=== PATIENT | female | born 1955 | race Caucasian/White ===

== ENCOUNTER → 2018-07-15 | Outpatient (CLI) | payer BC ==
[2018-07-15 09:01] LABS: HCT 45.1 % (34.0-46.0); HGB 14.9 gm/dL (11.4-16.0); MCH 30.4 pg (25.0-35.0); MCHC 33.1 g/dL (31.0-37.0); MCV 91.9 fL (80.0-100.0); Mean Platelet Volume 6.8; Platelet Count 235 k/uL (150-450); RBC 4.91 m/uL (3.80-5.40); RDW 12.9 % (11.5-15.5); WBC 6.4 k/uL (3.8-10.6)
[2018-07-15 09:05] LABS: Appearance,Urine Clear (Clear); Bilirubin,Urine Negative (Negative); Blood,Urine Negative (Negative); Color,Urine Yellow; Glucose,Urine (UA) Negative (Negative); Ketones,Urine Negative (Negative); Leukocyte Esterase,Urine Negative (Negative); Nitrite,Urine Negative (Negative); Protein,Urine Negative (Negative); Specific Gravity,Urine 1.017 (1.001-1.035); Urobilinogen,Urine <2.0 mg/dL (<2.0)
[2018-07-15 09:06] LABS: INR 1.1 (<1.2); Prothrombin Time 10.5 sec (9.0-12.0)
[2018-07-15 09:18] LABS: ALT 18 U/L (9-52); AST 25 U/L (14-36); Albumin 3.9 g/dL (3.5-5.0); Alkaline Phosphatase 82 U/L (38-126); Anion Gap 6 mmol/L; Blood Urea Nitrogen 14 mg/dL (7-17); Calcium 9.8 mg/dL (8.4-10.2); Carbon Dioxide 27 mmol/L (22-30); Chloride 109 mmol/L (98-107); Glucose 99 mg/dL (74-99); Potassium 4.7 mmol/L (3.5-5.1); Sodium 142 mmol/L (137-145); Total Bilirubin 0.7 mg/dL (0.2-1.3); Total Protein 6.8 g/dL (6.3-8.2)
== END ==
LOC: LABPAT 08:09
PROVIDERS: ATTEND Orthopaedic Surgery Sports Medicine
DX: Z01.818 Encounter for other preprocedural examination (principal); Z01.812 Encounter for preprocedural laboratory examination
CPT/HCPCS: 36415; 80053; 81003; 85027; 85610; 85730; 87070; 93005

== ENCOUNTER 2018-07-24 11:31 | Inpatient (IN) | payer BC ==
[2018-07-14 15:06] VITALS: BMI 32.3
[~2018-07-24 11:31] MED LIST: ACETAMINOPHEN TAB 500 MG TAB PO ONE; DEXAMETHASONE SOD PHOSPHATE 10 MG/ML 1 ML VIAL IV ONE; HYDROmorphone 1 MG/ML 1 ML SYRINGE IVP PRN; LACTATED RINGERS 1,000 ML IV SCH; LIDOCAINE 1% 20 ML VIAL (10MG/ML) FOR IV START INTRADERMA PRN; MELOXICAM 7.5 MG TAB PO ONE; MIDAZOLAM 2 MG/2 ML VIAL IV PRN; ONDANSETRON 4 MG/2 ML VIAL IVP ONE; ROPIVACAINE 246.25 MG, EPINEPHrine 0.5 MG, KETOROLAC 30 MG, cloNIDine HCL/PF 80 MCG, WA... MISCELLANE ONE; SCOPOLAMINE 1.5MG/72HR PATCH TRANSDERM ONE; TRANEXAMIC ACID 1,000 MG in SODIUM CHLORIDE 0.9% 50 ML IVPB ONE; ceFAZolin IN SWFI 2 GM/20 ML SYRINGE IVP ONE
[2018-07-24] MEDS ORDERED: fentaNYL (PF) 50 MCG/ML 2 ML AMP ONE (14:11)
[2018-07-24] MEDS ORDERED: TRANEXAMIC ACID 1,000 MG/10 ML VIAL ONE (14:11)
[2018-07-24] MEDS ORDERED: MIDAZOLAM 2 MG/2 ML VIAL ONE (14:11)
[2018-07-24] MEDS ORDERED: SODIUM CHLORIDE 0.9% 100 ML BAG ONE (14:11)
[2018-07-24] MEDS ORDERED: diphenhydrAMINE 50 MG/ML 1 ML VIAL ONE (14:11)
[2018-07-24] MEDS ORDERED: PROPOFOL 10 MG/ML 20 ML VIAL IV ONE (14:11)
[2018-07-24] MEDS ORDERED: HYDROcodone/APAP 5-325MG 1 EACH TAB PO PRN ×2 (14:13)
[2018-07-24] MEDS ORDERED: TEMAZEPAM 15 MG CAP PO PRN (14:13)
[2018-07-24] MEDS ORDERED: HYDROmorphone 1 MG/ML 1 ML SYRINGE IVP PRN ×3 (14:13)
[2018-07-24] MEDS ORDERED: HYDROcodone/APAP 10-325MG 1 EACH TAB PO PRN (14:13)
[2018-07-24] MEDS ORDERED: traMADol 50 MG TAB PO PRN (14:13)
[2018-07-24] MEDS ORDERED: NALOXONE 0.4 MG/ML 1 ML VIAL IV PRN ×2 (14:13→15:05)
[2018-07-24] MEDS ORDERED: BISACODYL 10 MG SUPP RECTAL PRN (14:13)
[2018-07-24] MEDS ORDERED: DIAZEPAM 5 MG TAB PO PRN (14:13)
[2018-07-24] MEDS ORDERED: MAGNESIUM HYDROXIDE 2,400 MG/10 ML CUP PO PRN (14:13)
[2018-07-24] MEDS ORDERED: NA PHOS,M-B/NA PHOS,DI-BA 133 ML ENEMA RECTAL PRN (14:13)
[2018-07-24] MEDS ORDERED: hydrOXYzine PAMOATE 25 MG CAP PO PRN (14:13)
[2018-07-24] MEDS ORDERED: ONDANSETRON 4 MG/2 ML VIAL IVP PRN (14:13)
[2018-07-24] MEDS ORDERED: HYDROcodone/APAP 7.5-325MG 1 EACH TAB PO PRN (14:13)
[2018-07-24] MEDS ORDERED: LACTATED RINGERS 1,000 ML IV SCH (14:15)
[2018-07-24] MEDS ORDERED: CLINDAMYCIN 1,800 MG in SODIUM CHLORIDE 0.9% IRRIGATIO 3,000 ML IRRIGATION ONE (14:18)
[2018-07-24] MEDS ORDERED: LACTATED RINGERS 1,000 ML IV ONE (14:33)
[2018-07-24] MEDS ORDERED: PROMETHAZINE INJ 6.25 MG in SODIUM CHLORIDE 0.9% 50 ML IVPB PRN (15:05)
[2018-07-24] MEDS ORDERED: MORPHINE SULFATE 2 MG/ML SYRINGE IVP PRN (15:05)
[2018-07-24] MEDS ORDERED: NALBUPHINE 10 MG/ML VIAL (10ML MDV) IV PRN (15:05)
[2018-07-24] MEDS ORDERED: METOCLOPRAMIDE 5 MG/ML 2 ML VIAL IVP PRN (15:05)
--- NOTE | 2018-07-24 16:33 | XR ---
Limited right knee HISTORY: Status post right knee arthroplasty 2 views of the right knee Patient is status post right knee arthroplasty. There is anatomic alignment. Lucency present in the s oft tissues is compatible with postop state. Ossific densities posterior to the distal femur and at t he level of the posterior aspect of the femoral prosthesis are indeterminate, difficult to exclude lo ose bodies. IMPRESSION: Difficult to exclude loose bodies. Postop alignment is satisfactory. A Yellow level critical message alert has been initiated for Mekhi Sultana via the [employer] on 07/24/2018 4:31 PM. This message alert has been sent to Mekhi Sultana via e preferences provided by the clinician for the receipt of Radiology Critical Findings. Message ID [id number].
--- NOTE | 2018-07-24 18:01 | OP ---
OPERATIVE REPORT DATE OF PROCEDURE: 07/24/2018 PREOPERATIVE DIAGNOSIS: Right knee osteoarthrosis. POSTOPERATIVE DIAGNOSIS: Right knee osteoarthrosis. OPERATION: Right total knee arthroplasty. SURGEON: Kemar Davison MD TRAINING AND DEVELOPMENT SPECIALIST: Mekhi Sultana PA-C ANESTHESIA: Spinal with sedation. ESTIMATED BLOOD LOSS: 100 mL. TOURNIQUET TIME: 45 minutes at 250 mmHg. COMPLICATIONS: None apparent. DRAINS: None. DISPOSITION: Post-Anesthesia Care Unit. INDICATIONS: Kristy is a very pleasant 63-year-old female with a long-standing history of right knee pain. History and physical examination are consistent with advanced right knee osteoarthrosis. She has been through significant non-operative management up to this point. Further treatment options were discussed and she decided to go forward with right total knee arthroplasty. The risks of the procedure were discussed with her in detail. These risks include but are not limited to risk of infection, nerve damage, bleeding, pain and risk of deep vein thrombosis which could lead to fatal pulmonary embolism. There is also a risk of loosening of the implant which could require revision operation. The patient understands these risks. All of her questions were answered to her satisfaction. Appropriate informed consent was obtained. DESCRIPTION OF THE PROCEDURE: The patient was identified in the preoperative holding area. Surgical site was marked by both the patient and myself. She was given 2 grams of Ancef IV for prophylactic purposes. She was then transferred to the operative suite. She was placed supine on the operating room table. Spinal anesthetic was then administered and dosed per the anesthesia department without apparent complication. Examination under anesthesia was then performed. The patient was 2-3 degrees shy of full extension. She had 100 degrees of flexion. The medial collateral ligament, lateral collateral ligament and posterior cruciate ligaments were stable. Tourniquet was then placed high on the right upper thigh, well padded in preparation for surgery. The patient's right lower extremity was then prepped and draped in the usual sterile fashion. Standard surgical pause was then undertaken to ensure that we were operating on the correct site and that appropriate preoperative antibiotics had been given. All staff in the room were in agreement and we proceeded. The outlines of the patella were marked with a surgical pen. A planned 12 cm vertical incision centered over the patella was marked with a surgical pen. The leg was exsanguinated with an Esmarch dressing. The knee was then flexed and the tourniquet was inflated to 250 mmHg. The total tourniquet time for the procedure was 45 minutes. Incision was then made with a 10-blade scalpel. Dissection was carried down sharply to the overlying fascia. Great care was taken to minimize the skin flaps. The knee was then exposed using a standard medial parapatellar approach. A small cuff of quadriceps tendon was then left for suturing. She was in a bit of valgus preoperatively. Very minimal medial release was then made. This was done with just enough of a medial release for placement of the retractors. The medial meniscus was then excised as well. The lateral meniscus was also released anteriorly. The leg was then externally rotated. The patella was everted and the knee was flexed. The retractors were then placed to protect the collateral ligaments. I then proceeded to remove the infrapatellar fat pad. This was excised sharply tangentially with the fibers of the patellar tendon. I then proceeded to remove peripheral osteophytes. This was done with a rongeur. I then proceeded with the distal femoral resection. She did have near-full extension. The planned 9 mm resection was then done. The femoral canal was then entered in the midline of the femur approximately 10 mm anterior to the origin of the posterior cruciate ligament. The bobbi was then advanced down the center of the femur and placed intramedullary. Based on the preoperative radiographs, the angle between the anatomic and the mechanical axis of the femur was approximately 4-5 degrees. The valgus angle of the distal femoral cutting guide was then set at 4 degrees for the right knee. The distal femoral cutting guide was then advanced over the intramedullary bobbi. This was seated firmly against the femur. I then, as mentioned, planned take 9 mm off the distal femur. The cutting block was then secured onto the femur with pins. The jig was then removed and the distal femoral cut was made through the slot of the block. The pins were removed and the distal femoral cutting block was removed. The accuracy of the distal femoral cuts was checked with 2 flat bars. I then proceeded with femoral sizing. Posterior referencing sizing guide was held firmly against the resected distal surface of the femur. The posterior condyles were resting on the posterior plane of the guide. The sizing stylus was then placed on the anterior femur. The size was measured as a size 7. I then assessed for femoral rotation. The plan was for 3 degrees of external rotation. Three degrees of external rotation was placed onto the jig. These holes were then marked. I then confirmed the rotation by 3 separate methods. This was done using epicondylar axis as well as Whitesides line and posterior referencing. It was deemed that the external rotation was proper. I then went forward with placing the femoral cutting block. This was placed over the previously placed pin holes. The Thad wing was then placed on to the anterior slots to ensure that we would not notch the anterior femur with the anterior femoral cut. I then proceeded with the anterior femoral cut. This was flush with the anterior cortex of the femur. The posterior cuts were then made followed by the anterior chamfer cut, then the posterior chamfer cut. The cutting block was then removed. Throughout the resection, the collateral ligaments were protected with retractors. I then placed a trial size 7 femur. It fit very nice medial to lateral and fit flush with the distal end of the femur. The drill holes were then made. I then proceeded with the tibial cut. I planned for a cruciate-retaining knee. The guide was placed and set for varus, valgus and for slope. The height was set for an approximate 2 mm resection from the lateral tibial plateau, which was the lower side. I was happy with the alignment and amount of resection. The cutting block was then pinned to the proximal tibia. The alignment bobbi was removed and the proximal tibia was resected with a reciprocating saw. Again this was done with retractors protecting the collateral ligaments as well as the posterior cruciate ligament. I then proceeded to evaluate the flexion and extension gaps. A 10 mm block was placed. The flexion and extension gaps were equal. I then proceeded with resection of posterior osteophytes. She had very extensive posterior osteophytes. This was done using a curved osteotome. This resected the posterior osteophytes, and posterior capsule stripping was also done off the posterior aspect of the femur at this time. The osteophytes were then removed. I then proceeded with resection of the patella. The thickness of patella was measured using a caliper. The thickness was 22 mm. The thickness of the anticipated patellar dome was taken into account. The resection was then performed and confirmed to be equal in 4 quadrants using a caliper. Approximately 14 mm of bone remained after the resection. A 32 x 8.5 mm standard patellar trial was then placed. The holes were drilled and the trial was then placed. I then proceeded with sizing the tibial plate. A size E tibial plate fit very nicely. I then placed the trial femur, the tibial tray and the patellar button. A 10 mm trial tibial insert was also placed. The components fit very nicely. She had full extension and flexion. The extension and flexion gaps were equal and stable to both varus and valgus stress. The patella tracked appropriately. The tibial tray rotation was marked with a Bovie. This was externally rotated properly. I then proceed with tibial preparation. I first drilled the femoral holes and removed femoral component. The tibial tray was then set for proper external rotation as well as mediolateral placement onto the tibia. It was then pinned into place. I then proceeded with punching the keel. I then decided to proceed with cementing of all of our components. The knee was thoroughly irrigated with sterile saline solution via pulse lavage. The lateral geniculate artery was identified and cauterized. All blood was removed from the bone of the tibia, femur and patella via pulse lavage. I then proceed with cementing. Two packs of antibiotic bone cement were prepared on the back table by the surgical sales representative. I then proceeded with cementing the tibia first. The cement was impacted into the keel as well as deeply seated into the bone. A second coat of cement was then placed. The tibia was then impacted into place. Excess cement was removed with Mary's and jokers. I then proceeded with cementing the femoral component. The femoral component was also cemented using standard technique. Excess cement was removed. A 10 mm trial insert was then placed into the knee. It was brought into full extension with a constant axial load placed until the cement had hardened. The patellar component was then cemented. This was held firmly with a compressive device until the cement had dried. When the cement had dried, the knee was taken out of extension. All excess cement was removed from around the prosthesis. I then trialed the knee with a 10 mm insert. The flexion and extension gaps were appropriate. Polyethylene was then placed onto the tibial tray and locked into place. The knee was then reduced. The knee was again further irrigated with sterile saline solution with antibiotic added. The tourniquet was then deflated. The total tourniquet time for the procedure was 45 minutes at 250 mmHg. Final components were Minda Persona size 7 cruciate-retaining femoral component, a size E tibial tray, a 10 mm medial-congruent cruciate-retaining polyethylene insert, and a 32 x 8.5 mm patella. I then proceeded with closure. Again the knee was thoroughly irrigated. The quadriceps tendon and the medial retinaculum were reapproximated with #2 Ethibond suture. The extensor mechanism was then closed with a running #2 Quill suture. Subcutaneous tissues were closed with 2-0 Vicryl interrupted suture. The skin was closed with a running 3-0 Quill suture. Dermabond was applied to the incision. Sterile compressive dressing was then applied. All sponge and needle counts were deemed correct prior to closure. The patient tolerated the procedure without apparent complication. She was transferred to the recovery room in stable condition. MMODL / IJN: [id number] /
[2018-07-24] MEDS: ceFAZolin IN SWFI 2 GM/20 ML SYRINGE IVP SCH (20:16)
[2018-07-24] MEDS: ASPIRIN 325 MG TAB PO SCH (20:16)
[2018-07-24] MEDS: diphenhydrAMINE 50 MG/ML 1 ML VIAL IVP PRN (20:16)
[2018-07-24] MEDS ORDERED: SENNOSIDES-DOCUSATE SODIUM 1 EACH TAB PO SCH (21:00)
--- NOTE | 2018-07-24 21:36 | P.CON ---
Consult Note - . Consult date: 07/24/18 Assessment/Plan:: Patient of Dr. Gerard Rodrigues was consulted for medical management, postoperative. Patient is hypotensive/normotensive blood pressure 102/67 and 101/66, IV fluid changes 2.9 normal saline the same rate 75 mL an hour meanwhile discontinue the lactated Ringer. Kristy Leal 63 years old white female has 2 daughter and 1 son she came in electively for right total knee arthroplasty done by Dr. Kemar Davison today subsequently consult for medical management. Patient stated that she had arthritis in both knee but the right knee is worse and that is why she had the surgery. She denied any history of diabetes mellitus, hypertension, hypotension, medication for any of other reasons. ALLERGY to penicillin and amoxicillin. No previous history of surgical intervention. She is . Family history noncontributory. Review of system negative in the 14 point. Except the arthritis of the right knee. On exam: HEENT: Head was normocephalic and atraumatic,. Pupil equal reactive conjunctiva pink sclera was nonicteric. Normal hearing oropharynx natural teeth uvula midline, normal Neck supple no JVD no thyromegaly no lymphadenopathy trachea midline. Chest: Clear to auscultation and percussion Heart regular sinus rhythm. Abdomen is soft positive bowel sounds. Extremities: Right total knee arthroplasty, left knee advanced degenerative arthritis. No edema. Vital sign at the time of exam temperature 98.3 pulse 65 rate 16 and blood pressure 102/67. She is conscious alert oriented no dizziness or blurred vision. Assessment and plan: Blood pressure on the low side however is normal perfusing 102/67, plan change of the IV 2.9 normal saline 75 mL. Check lab in the morning if wasn't ordered by Dr. ray. Anticoagulation. The orthopedic surgeon.
[2018-07-25] MEDS: ceFAZolin IN SWFI 2 GM/20 ML SYRINGE IVP SCH (03:50)
[2018-07-25] MEDS: diphenhydrAMINE 50 MG/ML 1 ML VIAL IVP PRN (03:50)
[2018-07-25 05:22] VITALS: RESP 16
[2018-07-25] MEDS: SODIUM CHLORIDE 0.9% 1,000 ML IV SCH ×2 (05:50→09:26)
--- NOTE | 2018-07-25 06:59 | P.PN ---
Progress Note - Text Date: ime:[id number] Patient is status post total knee replacement by Dr. Davison. Patient seen this morning with VAS score of 0.no c/o of pruritus, no c/o nausea/vomiting, comfortable and doing well.
[2018-07-25 08:10] LABS: Basophils % (A) 0 %; Eosinophils # (A) 0.1 k/uL (0-0.7); Eosinophils % (A) 1 %; HCT 38.4 % (34.0-46.0); HGB 12.6 gm/dL (11.4-16.0); Lymphocytes # (A) 1.8 k/uL (1.0-4.8); Lymphocytes % (A) 13 %; MCH 30.4 pg (25.0-35.0); MCHC 32.9 g/dL (31.0-37.0); MCV 92.5 fL (80.0-100.0); Mean Platelet Volume 7.3; Monocytes # (A) 0.8 k/uL (0-1.0); Monocytes % (A) 6 %; Neutrophils # (A) 10.9 k/uL (1.3-7.7); Neutrophils % (A) 80 %; Platelet Count 233 k/uL (150-450); RBC 4.15 m/uL (3.80-5.40); WBC 13.7 k/uL (3.8-10.6)
[2018-07-25 08:40] VITALS: PULSE 55; TEMP 97.9
[2018-07-25] MEDS: ASPIRIN 325 MG TAB PO SCH (09:26)
--- NOTE | 2018-07-25 09:28 | P.DS ---
Providers Date of admission: 07/24/18 11:53 Expected date of discharge: 07/25/18 Attending physician: Kemar aDvison Consults: 07/24/18 14:13 Consult Physician Routine Consulting Provider: Frankie Carroll Reason/Comments: post op medical management Do you want consulting provider notified?: Yes Primary care physician: Ralf Gee - Discharge Diagnosis(es) (1) Status post total right knee replacement Keep wound clean and dry Take meds as directed Follow-up with Dr. Davison in office Weight bear as tolerated May shower in 3 days if no bleeding Current Visit: Yes Status: Acute Priority: Medium Procedures: Right TKA Patient Condition at Discharge: Good Plan - Discharge Summary New Discharge Prescriptions: New Aspirin 325 mg PO BID #60 tab Docusate [Colace] 100 mg PO BID #60 capsule HYDROcodone/APAP 7.5-325MG [Blythe 7.5-325] 1 - 2 each PO Q6HR PRN #56 tab PRN Reason: Pain No Action Magnesium 200 mg PO DAILY Discharge Medication List Magnesium 200 mg PO DAILY 07/24/18 [History] Aspirin 325 mg PO BID #60 tab 07/25/18 [Rx] Docusate [Colace] 100 mg PO BID #60 capsule 07/25/18 [Rx] HYDROcodone/APAP 7.5-325MG [Blythe 7.5-325] 1 - 2 each PO Q6HR PRN #56 tab [Rx] Follow up Appointment(s)/Referral(s): Kemar Davison MD [STAFF PHYSICIAN] - 08/04/18 1:00 pm Activity/Diet/Wound Care/Special Instructions: Keep wound clean and dry Take meds as directed Follow-up with Dr. Davison in office Weight bear as tolerated May shower in 3 days if no bleeding Discharge Disposition: HOME SELF-CARE
[2018-07-25 10:21] VITALS: BP 97/66
== END 2018-07-25 11:50 | disposition home health service (06) | DRG 470 ==
LOC: 2ORMAIN 11:53 → 3SUR 15:57
PROVIDERS: ADMIT Orthopaedic Surgery Sports Medicine; ATTEND Orthopaedic Surgery Sports Medicine
PROC: 0SRC0J9 Replacement of Right Knee Joint with Synthetic Substitute, Cemented, Open Approach (ICD-10-PCS; principal; 2018-07-24 14:35)
DX: M17.11 Unilateral primary osteoarthritis, right knee (principal); I95.9 Hypotension, unspecified; E78.5 Hyperlipidemia, unspecified; E66.9 Obesity, unspecified; Z68.32 Body mass index [BMI] 32.0-32.9, adult; Z79.899 Other long term (current) drug therapy; Z90.710 Acquired absence of both cervix and uterus; Z88.0 Allergy status to penicillin; Z82.49 Family history of ischemic heart disease and other diseases of the circulatory system
CPT/HCPCS: 85025; 88300

== ENCOUNTER → 2020-08-26 | Outpatient (CLI) | payer MEDICARE ==
[2020-08-26 09:37] LABS: Basophils # (A) 0.1 k/uL (0-0.2); Basophils % (A) 1 %; Eosinophils # (A) 0.1 k/uL (0-0.7); Eosinophils % (A) 2 %; HCT 48.8 % (34.0-46.0); HGB 15.5 gm/dL (11.4-16.0); Lymphocytes # (A) 2.6 k/uL (1.0-4.8); Lymphocytes % (A) 41 %; MCH 30.1 pg (25.0-35.0); MCHC 31.9 g/dL (31.0-37.0); MCV 94.4 fL (80.0-100.0); Mean Platelet Volume 8.1; Monocytes # (A) 0.4 k/uL (0-1.0); Monocytes % (A) 7 %; Neutrophils % (A) 47 %; Platelet Count 258 k/uL (150-450); RBC 5.17 m/uL (3.80-5.40); RDW 12.9 % (11.5-15.5); WBC 6.3 k/uL (3.8-10.6)
[2020-08-26 09:45] LABS: Potassium 4.6 mmol/L (3.5-5.1)
== END | disposition home or self-care (01) ==
LOC: LABPAT 07:50
PROVIDERS: ATTEND Obstetrics & Gynecology
DX: Z01.818 Encounter for other preprocedural examination (principal)
CPT/HCPCS: 36415; 80048; 85025; 86850; 86900; 86901; 93005

== ENCOUNTER 2020-09-05 05:47 | Day surgery (SDC) | payer MEDICARE ==
[2020-09-02 08:39] VITALS: BMI 30.9
--- NOTE | 2020-09-04 17:27 | P.HPOB ---
History of Present Illness H&P Date: 09/04/20 Chief Complaint: Cystocele, rectocele This is a 65 y.o. female, 4, para 3, who presents for anterior and posterior vaginal repair due to symptomatic cystocele and rectocele. She complains of vaginal mass, pressure, constipation, urinary hesitancy and some urinary incontinence. She saw Dr. Hunt who did urodynamic testing and she did not leak even when cystocele was reduced. She declined a sling. OB Hx: . History of 3 vaginal deliveries. 1 miscarriage. Policy Value Calculator Hx: No history of STDs. Social Hx: . Retired. Review of Systems Constitutional: Denies chills, Denies fever Eyes: denies blurred vision, denies pain Ears, nose, mouth and throat: Denies headache, Denies sore throat Cardiovascular: Denies chest pain, Denies shortness of breath Respiratory: Denies cough Gastrointestinal: Reports diarrhea (occ), Denies abdominal pain, Denies nausea, Denies vomiting Genitourinary: Reports prolapse symptoms, Reports stress incontinence, Reports urgency Menstruation: Reports post hysterectomy, Reports postmenopausal Musculoskeletal: Reports myalgias Integumentary: Denies pruritus, Denies rash Neurological: Denies numbness, Denies weakness Psychiatric: Denies anxiety, Denies depression Endocrine: Denies fatigue Past Medical History Past Medical History: Hyperlipidemia, Osteoarthritis (OA) History of Any Multi-Drug Resistant Organisms: None Reported Past Surgical History: Hysterectomy, Joint Replacement Additional Past Surgical History / Comment(s): rt foot bunionectomy. rt knee replacement Past Anesthesia/Blood Transfusion Reactions: Previous Problems w/ Anesthesia, Motion Sickness Additional Past Anesthesia/Blood Transfusion Reaction / Comment(s): hard time waking up Past Psychological History: No Psychological Hx Reported Smoking Status: Never smoker Past Alcohol Use History: Occasional Past Drug Use History: None Reported - Past Family History Father Family Medical History: Deep Vein Thrombosis (DVT) Son(s) Family Medical History: Cancer Medications and Allergies Home Medications Medication Instructions Recorded Confirmed Type Magnesium 200 mg PO DAILY 07/24/18 09/05/20 History Atorvastatin [Lipitor] 10 mg PO DAILY 09/02/20 09/05/20 History Cannabidiol (Cbd) [Epidiolex] 1 dose PO DAILY PRN 09/02/20 09/05/20 History Cholecalciferol [Vitamin D3 (25 3,000 unit PO DAILY 09/02/20 09/05/20 History Mcg = 1000 Iu)] L.acidoph,Paracasei, B.lactis 1 each PO DAILY 09/02/20 09/05/20 History [Probiotic] Turmeric Root Extract [Turmeric] 500 mg PO DAILY 09/02/20 09/05/20 History Allergies Allergy/AdvReac Type Severity Reaction Status Date / Time amoxicillin Allergy Rash/Hives Verified 09/05/20 06:22 Penicillins Allergy Rash/Hives Verified 09/05/20 06:22 Exam Osteopathic Statement: *. No significant issues noted on an osteopathic structural exam other than those noted in the History and Physical/Consult. HEENT: within normal limits Heart: regular rate and rhythm Lungs: clear to auscultation bilaterally Abdomen: soft, non-tender Pelvic: grade 3 cystocele, protruding out of vagina 1". 1st degree rectocele. No adnexal masses or tenderness. Extremities: Neg. Contreras's. Assessment and Plan (1) Cystocele with rectocele Current Visit: No Status: Acute Code(s): N81.10 - CYSTOCELE, UNSPECIFIED; N81.6 - RECTOCELE SNOMED Code(s): 167773677 Plan: Proceed with anterior and posterior vaginal repair. I have discussed the risks, benefits, and alternative therapies for the above- mentioned procedure and for both sedation/anesthesia as well as necessary blood products administration, if indicated, as they pertain to this patient. The patient has indicated her understanding and acceptance of the risks and procedures discussed.
[2020-09-05] MEDS ORDERED: HYDROmorphone 0.5 MG/0.5 ML SYRINGE IVP PRN (05:57)
[2020-09-05] MEDS ORDERED: ONDANSETRON 4 MG/2 ML VIAL IVP ONE (05:57)
[2020-09-05] MEDS ORDERED: LIDOCAINE 1% (10MG/ML) FOR IV START INTRADERMA PRN (05:57)
[2020-09-05] MEDS ORDERED: DEXAMETHASONE SOD PHOSPHATE 4 MG/ML 1 ML VIAL IV ONE (05:57)
[2020-09-05] MEDS: LACTATED RINGERS 1,000 ML IV SCH ×3 (06:42→20:54)
[2020-09-05] MEDS ORDERED: ROCURONIUM 10 MG/ML (10 ML VIAL) IV ONE (07:24)
[2020-09-05] MEDS ORDERED: PROPOFOL 10 MG/ML 20 ML VIAL IV ONE (07:24)
[2020-09-05] MEDS ORDERED: SUCCINYLCHOLINE CHLORIDE 100 MG/5 ML SYR IV ONE (07:24)
[2020-09-05] MEDS ORDERED: MIDAZOLAM 2 MG/2 ML VIAL ONE (07:24)
[2020-09-05] MEDS ORDERED: KETOROLAC 15 MG/ML 1 ML VIAL ONE (07:24)
[2020-09-05] MEDS ORDERED: LIDOCAINE 1% INJ 10MG/ML (20 ML MDV) ONE (07:24)
[2020-09-05] MEDS ORDERED: HYDROmorphone (PF) 1 MG/ML ONE (07:24)
[2020-09-05] MEDS ORDERED: fentaNYL (PF) 50 MCG/ML 2 ML AMP ONE (07:24)
[2020-09-05] MEDS ORDERED: ACETAMINOPHEN IV (For NPO) 1,000 MG/100 ML VIAL ONE (07:24)
[2020-09-05] MEDS ORDERED: EPINEPHrine 10 ML SYRINGE (0.1 MG/ML) IM ONE (07:51)
[2020-09-05] MEDS ORDERED: LIDOCAINE 1%-EPI 1:100,000 20 ML VIAL SQ ONE ×2 (07:51→08:02)
[2020-09-05] MEDS ORDERED: BACITRACIN ZINC 500 UNIT/GM OINT 28.4 GM TUBE TOPICAL ONE ×2 (08:01→08:17)
[2020-09-05] MEDS ORDERED: LACTATED RINGERS 1,000 ML IV ONE (08:25)
--- NOTE | 2020-09-05 08:25 | P.OP ---
Date of Procedure: 09/05/20 Preoperative Diagnosis: Cystocele with rectocele Postoperative Diagnosis: Same Procedure(s) Performed: Anterior and posterior vaginal colporrhaphy Anesthesia: KWAKU Surgeon: Alberta Mario [employer] Found[employer] Laborer #1: Apolinar Briones Estimated Blood Loss (ml): 20 Pathology: other (Vaginal mucosa) Condition: stable Disposition: floor Indications for Procedure: This is a 65 y.o. female, 4, para 3, who presents for anterior and posterior vaginal repair due to symptomatic cystocele and rectocele. She complains of vaginal mass, pressure, constipation, urinary hesitancy and some urinary incontinence. She saw Dr. Hunt who did urodynamic testing and she did not leak even when cystocele was reduced. She declined a sling. Operative Findings: Grade 3 cystocele and grade 1 rectocele/enterocele are noted Description of Procedure: The patient is taken to the operating room where she is placed in the dorsal lithotomy position. She is prepped and draped in the normal sterile fashion. A weighted speculum was placed in the patient's vagina. A right angle retractor is used to visualize the vaginal cuff. 2 Allis clamps are used to grasp the vaginal cuff. Injection of 1% lidocaine with epinephrine is injected underneath the vaginal mucosa upwards towards the urethra. A transverse incision is cut with the scalpel between the 2 Allis clamps. Metzenbaum scissors are used to dissect underneath the vaginal mucosa upwards towards the urethra. Edges of the vaginal cuff were held with Allis clamps. The cystocele is dissected away from the vaginal mucosa with sharp dissection. The cystocele is reduced with gauze. 0 Vicryl suture is placed on either side of the cystocele in interrupted [id number] fashion. The cystocele is reduced, the edges of the vaginal mucosa are trimmed with Metzenbaum scissors. The vaginal mucosa was then sutured with 0 Vicryl suture in a running locked fashion to the cuff and tied. Rizvi catheter is inserted and clear urine is noted. Next the introitus is grasped at the 4 and 8 o'clock position with Allis clamps. Injection of the same epinephrine solution is injected underneath the vaginal mucosa upwards towards the vaginal cuff. A triangle a piece of tissue is removed from the perineum with a scalpel and then Metzenbaum scissors are used to dissect underneath the vaginal mucosa upwards towards the vaginal cuff. The edges of the vaginal mucosa are held with Allis clamps. The rectocele is reduced with sharp and blunt dissection area 0 Vicryl suture is placed in [id number] stitches to reduce the rectocele. Next the edges of the vaginal mucosa are trimmed with Metzenbaum scissors. 0 Vicryl suture is used to close the incision in a running locked fashion up towards the introitus. It is then brought underneath the vaginal mucosa and whipstitched along the perineum and then brought back up in a subcuticular fashion up to the introitus and tied. Excellent hemostasis is noted. The vagina is then packed with one-inch iodoform gauze with bacitracin ointment. Rizvi catheter is attached. Again clear urine is noted. All sponge and needle counts are correct. The patient is then taken to recovery room in stable condition.
[2020-09-05] MEDS ORDERED: IBUPROFEN 600 MG TAB PO PRN (10:18)
[2020-09-05] MEDS ORDERED: HYDROcodone/APAP 7.5-325MG 1 EACH TAB PO PRN (10:18)
[2020-09-05] MEDS ORDERED: ZOLPIDEM 5 MG TAB PO PRN (10:18)
[2020-09-05] MEDS ORDERED: HYDROcodone/APAP 5-325MG 1 EACH TAB PO PRN (10:18)
[2020-09-05] MEDS ORDERED: METOCLOPRAMIDE 5 MG/ML 2 ML VIAL IVP PRN (10:18)
[2020-09-05] MEDS ORDERED: ONDANSETRON 4 MG/2 ML VIAL IVP PRN (10:18)
[2020-09-05] MEDS ORDERED: SIMETHICONE 80 MG CHEWABLE PO PRN (10:18)
[2020-09-05] MEDS ORDERED: diphenhydrAMINE 50 MG/ML 1 ML VIAL IVP PRN (10:18)
[2020-09-05] MEDS: KETOROLAC 15 MG/ML 1 ML VIAL IVP PRN ×2 (11:00→18:42)
[2020-09-05] MEDS: SENNOSIDES-DOCUSATE SODIUM 1 EACH TAB PO SCH ×2 (12:11→20:53)
[2020-09-05] MEDS: ATORVASTATIN 10 MG TAB PO SCH (12:11)
[2020-09-06] MEDS ORDERED: ACETAMINOPHEN TAB 325 MG TAB PO PRN (07:39)
[2020-09-06] MEDS: ATORVASTATIN 10 MG TAB PO SCH (08:00)
[2020-09-06 08:11] VITALS: BP 109/74; PULSE 61; RESP 15; TEMP 97.6
--- NOTE | 2020-09-06 08:32 | P.DS ---
Providers Date of admission: 09/05/2020 Expected date of discharge: 09/06/20 Attending physician: Alberta Mario Primary care physician: Hyacinth Grant MD - Discharge Diagnosis(es) (1) Cystocele with rectocele Current Visit: No Status: Acute Hospital Course: This is a 65-year-old female who presented for anterior and posterior vaginal colporrhaphy. She underwent the above procedure on 09/05/2020. Postoperatively she did have a headache the first night but she is doing better this morning. She denies any pain currently. She is not taking any narcotic. She has only used Motrin. She has not urinated yet but her catheter that was just removed this morning. She denies any flatus or bowel movement. She has been ambulating without difficulty. She is tolerating regular diet. Vital signs are stable. Abdomen is soft with positive bowel sounds 4. Vickie-pad shows scant serosanguineous discharge. Impression is status post anterior and posterior vaginal colporrhaphy postoperative day #1. Plan is to discharge home later today as long as she is able to urinate with low residual. She will be given a prescription for ibuprofen 600 mg as needed. She also is advised follow-up in the office in approximately 1 week for postoperative check. Routine postoperative instructions are given. She is advised to call the office if she has any further questions or concerns prior to her appointment time. Procedures: Anterior and posterior vaginal colporrhaphy on 09/05/2020 Patient Condition at Discharge: Stable Plan - Discharge Summary Discharge Rx Participant: No New Discharge Prescriptions: New Ibuprofen [Motrin] 600 mg PO Q6HR PRN #60 tab PRN Reason: Mild Discomfort No Action Magnesium 200 mg PO DAILY L.acidoph,Paracasei, B.lactis [Probiotic] 1 each PO DAILY Cholecalciferol [Vitamin D3 (25 Mcg = 1000 Iu)] 3,000 unit PO DAILY Atorvastatin [Lipitor] 10 mg PO DAILY Turmeric Root Extract [Turmeric] 500 mg PO DAILY Cannabidiol (Cbd) [Epidiolex] 1 dose PO DAILY PRN PRN Reason: Pain Discharge Medication List Magnesium 200 mg PO DAILY 07/24/18 [History] Atorvastatin [Lipitor] 10 mg PO DAILY 09/02/20 [History] Cannabidiol (Cbd) [Epidiolex] 1 dose PO DAILY PRN 09/02/20 [History] Cholecalciferol [Vitamin D3 (25 Mcg = 1000 Iu)] 3,000 unit PO DAILY 09/02/20 [History] L.acidoph,Paracasei, B.lactis [Probiotic] 1 each PO DAILY 09/02/20 [History] Turmeric Root Extract [Turmeric] 500 mg PO DAILY 09/02/20 [History] Ibuprofen [Motrin] 600 mg PO Q6HR PRN #60 tab 09/06/20 [Rx] Follow up Appointment(s)/Referral(s): Alberta Mario DO [Doctor of Osteopathic Medicine] - 1 Week Activity/Diet/Wound Care/Special Instructions: No intercourse for 6 weeks. May shower, but no tub baths for 1 week. No lifting, bending, stooping, pushing. Light activity. Diet as tolerated. Discharge Disposition: HOME SELF-CARE
[2020-09-06 08:35] LABS: Basophils % (A) 0 %; Eosinophils % (A) 0 %; HCT 38.5 % (34.0-46.0); HGB 12.6 gm/dL (11.4-16.0); Lymphocytes # (A) 3.2 k/uL (1.0-4.8); Lymphocytes % (A) 32 %; MCH 29.9 pg (25.0-35.0); MCHC 32.7 g/dL (31.0-37.0); MCV 91.3 fL (80.0-100.0); Monocytes # (A) 0.6 k/uL (0-1.0); Monocytes % (A) 6 %; Neutrophils # (A) 5.9 k/uL (1.3-7.7); Neutrophils % (A) 60 %; Platelet Count 188 k/uL (150-450); RBC 4.21 m/uL (3.80-5.40); RDW 13.5 % (11.5-15.5); WBC 9.8 k/uL (3.8-10.6)
== END 2020-09-06 09:45 | disposition home or self-care (01) ==
LOC: OR 05:47 → 4FBP 08:18 → OR 09-06 09:45
PROVIDERS: ATTEND Obstetrics & Gynecology
DX: N81.10 Cystocele, unspecified (principal); N81.6 Rectocele; E78.5 Hyperlipidemia, unspecified; M19.90 Unspecified osteoarthritis, unspecified site; Z90.710 Acquired absence of both cervix and uterus; Z96.651 Presence of right artificial knee joint; Z98.890 Other specified postprocedural states; Z82.49 Family history of ischemic heart disease and other diseases of the circulatory system; Z80.9 Family history of malignant neoplasm, unspecified; Z79.899 Other long term (current) drug therapy; Z88.0 Allergy status to penicillin
CPT/HCPCS: 57260; 85025; 88302; J2250; J1200; J1100; J0690; J2405; J2001; J3010; J1170; J0131; J1885; J0330; J2704; 86850; 86900; 86901

== ENCOUNTER → 2021-09-22 | Outpatient (CLI) | payer MEDICARE ==
[2021-09-22 09:30] LABS: Appearance,Urine Clear (Clear); Bilirubin,Urine Negative (Negative); Blood,Urine Negative (Negative); Color,Urine Yellow; Glucose,Urine (UA) Negative (Negative); Ketones,Urine Negative (Negative); Leukocyte Esterase,Urine Negative (Negative); Nitrite,Urine Negative (Negative); PH, Urine 6.5 (5.0-8.0); Protein,Urine Negative (Negative); Specific Gravity,Urine 1.023 (1.001-1.035); Urobilinogen,Urine <2.0 mg/dL (<2.0)
[2021-09-22 15:19] LABS: HCT 46.1 % (37.2-46.3); HGB 14.2 g/dL (12.0-15.0); MCH 29.5 pg (27.0-32.0); MCHC 30.8 g/dL (32.0-37.0); MCV 95.6 fL (80.0-97.0); Platelet Count 231 X 10*3/uL (140-440); RBC 4.82 X 10*6/uL (4.10-5.20); RDW 13.5 % (11.5-14.5); WBC 7.55 X 10*3/uL (4.50-10.00)
[2021-09-22 16:52] LABS: % Iron Saturation 12.13 (12.00-45.00); ALT 25 U/L (8-44); AST 22 U/L (13-35); African American GFR (CKD) 88.4 (60.0-200.0); Albumin 4.3 g/dL (3.8-4.9); Albumin/Globulin Ratio 1.87 (1.60-3.17); Alkaline Phosphatase 89 U/L (41-126); BUN/Creat Ratio 30.25 Ratio (12.00-20.00); Blood Urea Nitrogen 24.2 mg/dL (9.0-27.0); Carbon Dioxide 25.8 mmol/L (20.0-27.5); Chloride 107 mmol/L (96-109); Chol/HDL Ratio 2.65 Ratio; Ferritin 42.5 ng/mL (10.0-291.0); Globulin 2.3 g/dL (1.6-3.3); Glucose 99 mg/dL (70-110); Iron 55 ug/dL (50-170); LDL Cholesterol,Calculated 99.1 mg/dL (0.0-131.0); Non-African American GFR(CKD) 76.3 (60.0-200.0); Potassium 5.3 mmol/L (3.5-5.5); Sodium 143 mmol/L (135-145); Total Iron Binding Capacity 454 ug/dL (228-460); Total Protein 6.6 g/dL (6.2-8.2)
== END | disposition home or self-care (01) ==
LOC: LABWHC1 07:54
PROVIDERS: ATTEND Internal Medicine
DX: D64.9 Anemia, unspecified (principal); E78.5 Hyperlipidemia, unspecified; K58.9 Irritable bowel syndrome, unspecified; R32 Unspecified urinary incontinence
CPT/HCPCS: 36415; 80053; 80061; 81003; 82607; 82728; 82747; 83540; 83550; 84443; 85027

== ENCOUNTER 2022-05-04 13:37 | Inpatient (IN) | payer MEDICARE ==
[2022-05-04] MEDS ORDERED: MORPHINE SULFATE 4 MG/ML SYRINGE IV STA (16:08)
[2022-05-04] MEDS ORDERED: SODIUM CHLORIDE 0.9% 1,000 ML IV STA (16:08)
[2022-05-04] MEDS ORDERED: ONDANSETRON ODT 8 MG TAB.RAPDIS PO STA (16:08)
--- NOTE | 2022-05-04 16:14 | ED ---
Abdominal Pain HPI - General Chief Complaint: Abdominal Pain Stated Complaint: abd pain/cough Time Seen by Provider: 05/04/22 16:01 Source: patient, RN notes reviewed Mode of arrival: ambulatory Limitations: no limitations - History of Present Illness Initial Comments: Ihsan hill 66-year-old female presents emergency parents complaining of a dry cough which is impressive for 1 month since the patient got back from [place]. Patient to go home COVID-19 test previously which was negative. About 9 days ago patient started developing lower abdominal pain which is exacerbated by coughing or movement. Also is asthmatic palpation. This is in the lower abdomen, suprapubic and left lower quadrant for the most part. No radiation. Alleviated by position at times. Patient has had no known fever. Patient states she has had problems with chronic abdominal pain for some 10 years but this is different. No dysuria. No hematuria. No back pain. No headache, no fever or chills, no changes in vision or hearing, no sore throat or difficulty with speech, no neck pain, no chest pain or shortness of breath, no abdominal pain, no nausea or vomiting, no changes in urination or bowel movements, no numbness or tingling, no extremity pain, no skin rashes or lesions. MD Complaint: abdominal pain - Related Data Home Medications Medication Instructions Recorded Confirmed Atorvastatin [Lipitor] 10 mg PO DAILY 09/02/20 05/04/22 Allergies Allergy/AdvReac Type Severity Reaction Status Date / Time amoxicillin Allergy Rash/Hives Verified 05/04/22 16:49 Penicillins Allergy Rash/Hives Verified 05/04/22 16:50 Review of Systems ROS Statement: Those systems with pertinent positive or pertinent negative responses have been documented in the HPI. ROS Other: All systems not noted in ROS Statement are negative. Past Medical History Past Medical History: Osteoarthritis (OA) History of Any Multi-Drug Resistant Organisms: None Reported Past Surgical History: Hysterectomy, Joint Replacement Additional Past Surgical History / Comment(s): rt foot bunionectomy Past Anesthesia/Blood Transfusion Reactions: Previous Problems w/ Anesthesia, Motion Sickness Additional Past Anesthesia/Blood Transfusion Reaction / Comment(s): hard time waking up Past Psychological History: No Psychological Hx Reported Smoking Status: Never smoker Past Alcohol Use History: None Reported Past Drug Use History: None Reported - Past Family History Father Family Medical History: Deep Vein Thrombosis (DVT) Son(s) Family Medical History: Cancer General Exam Limitations: no limitations General appearance: alert, in no apparent distress Head exam: Present: atraumatic, normocephalic, normal inspection Eye exam: Present: normal appearance, PERRL, EOMI. Absent: scleral icterus, conjunctival injection, periorbital swelling ENT exam: Present: normal exam, mucous membranes moist Neck exam: Present: normal inspection, full ROM. Absent: tenderness, meningismus, lymphadenopathy Respiratory exam: Present: normal lung sounds bilaterally, other (Dry cough noted throughout the course of the examination). Absent: respiratory distress, wheezes, rales, rhonchi, stridor Cardiovascular Exam: Present: regular rate, normal rhythm, normal heart sounds. Absent: systolic murmur, diastolic murmur, rubs, gallop, clicks GI/Abdominal exam: Present: soft, tenderness, guarding (Patient has tenderness in the suprapubic area and left lower quadrant area to palpation.), normal bowel sounds. Absent: distended, rebound, rigid Extremities exam: Present: normal inspection, full ROM, normal capillary refill. Absent: tenderness, pedal edema, joint swelling, calf tenderness Back exam: Present: normal inspection Neurological exam: Present: alert, oriented X3, CN II-XII intact Psychiatric exam: Present: normal affect, normal mood Skin exam: Present: warm, dry, intact, normal color. Absent: rash Course Vital Signs 05/04/22 05/04/22 05/04/22 13:38 16:31 18:26 Temperature 98.3 F Pulse Rate 98 66 99 Respiratory 20 18 18 Rate Blood Pressure 121/85 119/70 O2 Sat by Pulse 97 95 Oximetry - Reevaluation(s) Reevaluation #1: 05/04/22 17:40 Medical record is reviewed Computed tomography scan ordered. Patient has elevated white count with air- fluid levels on plain film x-ray. We'll assess for intra-abdominal pathology. Patient is informed of results and questions answered Patient in no distress Reevaluation #2: 05/04/22 18:27 Computed tomography scan abdomen and pelvis reveals sigmoid diverticulitis with probable abscess. There is a 1.2 cm small intramural abscess patient's the sigmoid colon. Patient also has a 4.2 cm cystic area to the left ovary. She hemodynamically stable. Patient started on levofloxacin and metronidazole. Blood cultures ordered, patient will be admitted - Consultations Consultation #1: Case discussed with Dr. Trammell due to the patient's sigmoid diverticulitis with abscess formation. She requests admission to medicine and she will consult on the case. Medical Decision Making - Medical Decision Making Differential diagnosis includes bronchitis, possible atypical pneumonia, less likely bacterial pneumonia as patient has no fever. As far as the lower abdominal pain is concerned, diverticulitis is within the differential. Less likely perforation. Does not appear to be consistent with urogenital disease. Presentation consistent with cardiac disease. Not consistent with vascular di sease. There is no pulsatile mass. Symptoms been going on for quite some time. We'll order a general respiratory/abdominal workup. Water COVID-19 testing with influenza testing. Plain film x-rays initially. The case was discussed in detail with ED attending physician. Presentation, findings, treatment plan discussed in detail. Discussed with on-call surgery, patient admitted to medicine--Dr. Sanchez from [facility] All findings discussed with the patient. Levaquin, metronidazole - Lab Data Result diagrams: 05/04/22 16:35 05/04/22 16:35 Lab Results 05/04/22 05/04/22 05/04/22 Range/Units 16:35 16:35 16:35 WBC 13.1 H (3.8-10.6) k/uL RBC 4.65 (3.80-5.40) m/uL Hgb 13.6 (11.4-16.0) gm/dL Hct 41.4 (34.0-46.0) % MCV 89.0 (80.0-100.0) fL MCH 29.2 (25.0-35.0) pg MCHC 32.8 (31.0-37.0) g/dL RDW 14.0 (11.5-15.5) % Plt Count 323 (150-450) k/uL MPV 7.6 Neutrophils % 78 % Lymphocytes % 12 % Monocytes % 7 % Eosinophils % 1 % Basophils % 0 % Neutrophils # 10.2 H (1.3-7.7) k/uL Lymphocytes # 1.6 (1.0-4.8) k/uL Monocytes # 0.9 (0-1.0) k/uL Eosinophils # 0.1 (0-0.7) k/uL Basophils # 0.1 (0-0.2) k/uL Sodium 135 L (137-145) mmol/L Potassium 4.5 (3.5-5.1) mmol/L Chloride 101 (98-107) mmol/L Carbon Dioxide 24 (22-30) mmol/L Anion Gap 10 mmol/L BUN 8 (7-17) mg/dL Creatinine 0.72 (0.52-1.04) mg/dL Est GFR (CKD-EPI)AfAm >90 (>60 ml/min/1.73 sqM) Est GFR (CKD-EPI)NonAf 88 (>60 ml/min/1.73 sqM) Glucose 106 H (74-99) mg/dL Plasma Lactic Acid Patrice (0.7-2.0) mmol/L Calcium 9.4 (8.4-10.2) mg/dL Magnesium 2.2 (1.6-2.3) mg/dL Total Bilirubin 0.7 (0.2-1.3) mg/dL AST 39 H (14-36) U/L ALT 35 H (4-34) U/L Alkaline Phosphatase 93 (38-126) U/L Total Protein 7.0 (6.3-8.2) g/dL Albumin 3.9 (3.5-5.0) g/dL Amylase 47 (30-110) U/L Lipase 93 (23-300) U/L Urine Color Light Yellow Urine Appearance Clear (Clear) Urine pH 6.5 (5.0-8.0) Ur Specific [place] 1.044 H (1.001-1.035) Urine Protein Negative (Negative) Urine Glucose (UA) Negative (Negative) Urine Ketones Trace H (Negative) Urine Blood Negative (Negative) Urine Nitrite Negative (Negative) Urine Bilirubin Negative (Negative) Urine Urobilinogen <2.0 (<2.0) mg/dL Ur Leukocyte Esterase Negative (Negative) Coronavirus (PCR) (Not Detectd) Influenza Type A RNA (Not Detectd) Influenza Type B (PCR) (Not Detectd) 05/04/22 05/04/22 05/04/22 Range/Units 16:35 16:35 16:35 WBC (3.8-10.6) k/uL RBC (3.80-5.40) m/uL Hgb (11.4-16.0) gm/dL Hct (34.0-46.0) % MCV (80.0-100.0) fL MCH (25.0-35.0) pg MCHC (31.0-37.0) g/dL RDW (11.5-15.5) % Plt Count (150-450) k/uL MPV Neutrophils % % Lymphocytes % % Monocytes % % Eosinophils % % Basophils % % Neutrophils # (1.3-7.7) k/uL Lymphocytes # (1.0-4.8) k/uL Monocytes # (0-1.0) k/uL Eosinophils # (0-0.7) k/uL Basophils # (0-0.2) k/uL Sodium (137-145) mmol/L Potassium (3.5-5.1) mmol/L Chloride (98-107) mmol/L Carbon Dioxide (22-30) mmol/L Anion Gap mmol/L BUN (7-17) mg/dL Creatinine (0.52-1.04) mg/dL Est GFR (CKD-EPI)AfAm (>60 ml/min/1.73 sqM) Est GFR (CKD-EPI)NonAf (>60 ml/min/1.73 sqM) Glucose (74-99) mg/dL Plasma Lactic Acid Patrice 1.2 (0.7-2.0) mmol/L Calcium (8.4-10.2) mg/dL Magnesium (1.6-2.3) mg/dL Total Bilirubin (0.2-1.3) mg/dL AST (14-36) U/L ALT (4-34) U/L Alkaline Phosphatase (38-126) U/L Total Protein (6.3-8.2) g/dL Albumin (3.5-5.0) g/dL Amylase (30-110) U/L Lipase (23-300) U/L Urine Color Urine Appearance (Clear) Urine pH (5.0-8.0) Ur Specific [place] (1.001-1.035) Urine Protein (Negative) Urine Glucose (UA) (Negative) Urine Ketones (Negative) Urine Blood (Negative) Urine Nitrite (Negative) Urine Bilirubin (Negative) Urine Urobilinogen (<2.0) mg/dL Ur Leukocyte Esterase (Negative) Coronavirus (PCR) Not Detected (Not Detectd) Influenza Type A RNA Not Detected (Not Detectd) Influenza Type B (PCR) Not Detected (Not Detectd) - Radiology Data Radiology results: report reviewed, image reviewed Disposition Clinical Impression: Abscess of sigmoid colon due to diverticulitis, Left ovarian cyst, Cough Disposition: ADMITTED IP TO THIS [facility] Condition: Stable Referrals: Hyacinth Grant MD [Primary Care Provider] - 1-2 days Time of Disposition: 18:28 Decision to Admit Reason: Admit from EC Decision Time: 18:28
[2022-05-04] MEDS ORDERED: ONDANSETRON 4 MG/2 ML VIAL IVP STA (16:37)
[2022-05-04 17:00] LABS: Basophils # (A) 0.1 k/uL (0-0.2); Basophils % (A) 0 %; Eosinophils # (A) 0.1 k/uL (0-0.7); Eosinophils % (A) 1 %; HCT 41.4 % (34.0-46.0); HGB 13.6 gm/dL (11.4-16.0); Lymphocytes # (A) 1.6 k/uL (1.0-4.8); Lymphocytes % (A) 12 %; MCH 29.2 pg (25.0-35.0); MCHC 32.8 g/dL (31.0-37.0); Mean Platelet Volume 7.6; Monocytes # (A) 0.9 k/uL (0-1.0); Monocytes % (A) 7 %; Neutrophils # (A) 10.2 k/uL (1.3-7.7); Neutrophils % (A) 78 %; Platelet Count 323 k/uL (150-450); RBC 4.65 m/uL (3.80-5.40); WBC 13.1 k/uL (3.8-10.6)
--- NOTE | 2022-05-04 17:10 | XR ---
EXAMINATION TYPE: XR abdomen acute w cxr DATE OF EXAM: 05/04/2022 COMPARISON: NONE HISTORY: Shortness of breath TECHNIQUE: Frontal and lateral views of the chest are obtained. FINDINGS: Scattered senescent parenchymal changes noted. Hyperinflation compatible with COPD. No evidence for infiltrate. No evidence for atelectasis. Heart size is stable. Mediastinal structures are stable and grossly unremarkable. No evidence for hilar prominence. Degenerative changes dorsal spine. IMPRESSION: 1. No evidence for acute pulmonary disease.
[2022-05-04 17:13] LABS: ALT 35 U/L (4-34); AST 39 U/L (14-36); African American GFR (CKD) >90 (>60 ml/min/1.73 sqM); Albumin 3.9 g/dL (3.5-5.0); Alkaline Phosphatase 93 U/L (38-126); Amylase 47 U/L (30-110); Anion Gap 10 mmol/L; Blood Urea Nitrogen 8 mg/dL (7-17); Calcium 9.4 mg/dL (8.4-10.2); Carbon Dioxide 24 mmol/L (22-30); Chloride 101 mmol/L (98-107); Glucose 106 mg/dL (74-99); Lipase 93 U/L (23-300); Magnesium 2.2 mg/dL (1.6-2.3); Non-African American GFR(CKD) 88 (>60 ml/min/1.73 sqM); Potassium 4.5 mmol/L (3.5-5.1); Sodium 135 mmol/L (137-145); Total Bilirubin 0.7 mg/dL (0.2-1.3)
--- NOTE | 2022-05-04 18:18 | CT ---
EXAMINATION TYPE: CT abdomen pelvis w con DATE OF EXAM: 05/04/2022 COMPARISON: None HISTORY: Lower abdominal pain CT DLP: 1324.7 mGycm CONTRAST: CT scan of the abdomen and pelvis is performed without Oral Contrast and with IV Contrast, patient in jected with 100 mL of Isovue 300. FINDINGS: LUNG BASES-: Calcified granulomas at the lung bases. No infiltrate. LIVER/GB: No calcified gallstones. No space occupying hepatic lesion. Biliary tree is of normal ca liber. PANCREAS: No inflammation. No distinct mass. SPLEEN: No splenic enlargement. No lesion seen. ADRENALS: No nodule. No thickening. KIDNEYS/BLADDER: No hydronephrosis. No nephrolithiasis. No distinct renal mass. Urinary bladder g rossly unremarkable. BOWEL: There is wall thickening and inflammatory change involving the sigmoid colon. Small intramural abscess is difficult to exclude measuring 1.2 cm axial image 64 of 69.. No extraluminal air or extra luminal abscess seen. Inflated: Resides directly adjacent to the left ovary which demonstrates a 4.2 cm cystic lesion. GENITAL ORGANS: 4.2 cm left ovarian cystic lesion resides adjacent to the inflamed sigmoid colon. The re appears to be evidence of hysterectomy and prior right-sided nephrectomy. LYMPH NODES: No greater than 1cm abdominal or pelvic lymph nodes are appreciated. AORTA: No significant abnormality. OSSEOUS STRUCTURES: No significant abnormality is seen. OTHER: No significant additional abnormality is seen. IMPRESSION: 1. Sigmoid diverticulitis as discussed above.
[2022-05-04] MEDS ORDERED: LEVOFLOXACIN 750MG-D5W PMX 750 MG in DEXTROSE/WATER 1 150ML.BAG IVPB STA (18:23)
[2022-05-04 18:32] LABS: Appearance,Urine Clear (Clear); Bilirubin,Urine Negative (Negative); Blood,Urine Negative (Negative); Color,Urine Light Yellow; Glucose,Urine (UA) Negative (Negative); Ketones,Urine Trace (Negative); Leukocyte Esterase,Urine Negative (Negative); Nitrite,Urine Negative (Negative); PH, Urine 6.5 (5.0-8.0); Protein,Urine Negative (Negative); Specific Gravity,Urine 1.044 (1.001-1.035); Urobilinogen,Urine <2.0 mg/dL (<2.0)
[2022-05-04] MEDS ORDERED: ONDANSETRON 4 MG/2 ML VIAL IVP PRN (18:36)
[2022-05-04] MEDS ORDERED: NALOXONE 0.4 MG/ML 1 ML VIAL IV PRN (18:36)
[2022-05-04] MEDS: SODIUM CHLORIDE 0.9% 1,000 ML IV SCH (20:06)
[2022-05-04] MEDS: metroNIDAZOLE-NS PMX 500 MG in SALINE 1 100ML.BAG IVPB SCH (20:07)
[2022-05-04] MEDS: MORPHINE SULFATE 4 MG/ML SYRINGE IV PRN (21:45)
[2022-05-05] MEDS: metroNIDAZOLE-NS PMX 500 MG in SALINE 1 100ML.BAG IVPB SCH ×4 (00:30→17:41)
--- NOTE | 2022-05-05 02:36 | P.HPIM ---
History of Present Illness H&P Date: 05/04/22 The patient is a 66-year-old female with a PMH of hyperlipidemia who presents to the medicine should with complaints of abdominal pain. The patient reports that her symptoms started initially 9 days ago with diffuse lower abdominal pain. She reports that the pain gradually worsened, at maximal intensity was 9 out of 10, diffusing throughout the lower abdomen, particularly in the left lower quadr ant and suprapubic regions, worsened with coughing, and alleviated with certain positions. Denied experiencing nausea, vomiting, or diarrhea. Denied urinary complaints, fever, or chills. The patient does report a long-standing history of chronic abdominal pain with self diagnosis of IBS-C. the patient reports that she developed a nonproductive cough 2-3 weeks ago which she attributes to seasonal ALLERGIES. Denies chest discomfort or shortness of breath. At time of interview, reports that her lower abdominal pain is improved to 4 out of 10 after receiving any pain medications. CT abdomen and pelvis revealed findings consistent with diverticulitis with abscess. Laboratory evaluation was remarkable for leukocytosis of 13.1, lactic acid 1.2, AST 39, ALT 35. Review of systems: Pertinent positives and negatives as discussed in HPI, a complete review of systems was performed and all other systems are negative. Physical examination: General: non toxic, no distress, appears at stated age, normal weight Derm: no unusual rashes/lesions, warm Head: atraumatic, normocephalic, symmetric Eyes: EOMI, no lid lag, anicteric sclera, pupils equal round reactive to light ENT: Nose and ears atraumatic Neck: No cervical lymphadenopathy, trachea midline, supple Mouth: no lip lesion, mucus membranes moist Cardiovascular: S1S2 reg, no murmur, positive dorsalis pedis pulse bilateral, no edema Lungs: CTA bilateral, no rhonchi, no rales, no accessory muscle use Abdominal: soft, left lower quadrant suprapubic tenderness to palpation with minimal guarding Ext: muscle strength 5 out of 5 in all 4 extremities grossly, no gross muscle atrophy, no contractures, Neuro: CN II-XI grossly intact, no gross focal neuro deficits Psych: Alert, oriented, appropriate affect Assessment/plan Diverticulitis with abscess -Continue with IV antibiotics: Flagyl and Levaquin -IV fluids -Antiemetics -Pain control DVT prophylaxis -Heparin subcu The patient is admitted with an anticipated greater than 2 midnight stay for evaluation of diverticulitis. CODE STATUS: Full Code Discussed with: Patient Anticipated discharge date: 2-[address]: Home Past Medical History Past Medical History: Osteoarthritis (OA) History of Any Multi-Drug Resistant Organisms: None Reported Past Surgical History: Hysterectomy, Joint Replacement Additional Past Surgical History / Comment(s): rt foot bunionectomy Past Anesthesia/Blood Transfusion Reactions: Previous Problems w/ Anesthesia, Motion Sickness Additional Past Anesthesia/Blood Transfusion Reaction / Comment(s): hard time waking up Past Psychological History: No Psychological Hx Reported Smoking Status: Never smoker Past Alcohol Use History: None Reported Past Drug Use History: None Reported - Past Family History Father Family Medical History: Deep Vein Thrombosis (DVT) Son(s) Family Medical History: Cancer Medications and Allergies Home Medications Medication Instructions Recorded Confirmed Type Atorvastatin [Lipitor] 10 mg PO DAILY 09/02/20 05/04/22 History Allergies Allergy/AdvReac Type Severity Reaction Status Date / Time amoxicillin Allergy Rash/Hives Verified 05/04/22 16:49 Penicillins Allergy Rash/Hives Verified 05/04/22 16:50 Physical Exam Vitals: Vital Signs Temp Pulse Resp BP Pulse Ox 05/04/22 20:14 99.2 F 69 16 106/69 95 05/04/22 18:26 99 18 119/70 95 05/04/22 16:31 66 18 05/04/22 13:38 98.3 F 98 20 121/85 97 Intake and Output 05/04/22 05/04/22 05/04/22 06:59 14:59 22:59 Other: Weight 85.275 kg Results CBC & Chem 7: 05/04/22 16:35 05/04/22 16:35 Labs: Abnormal Lab Results - Last 24 Hours (Table) 05/04/22 05/04/22 05/04/22 Range/Units 16:35 16:35 16:35 WBC 13.1 H (3.8-10.6) k/uL Neutrophils # 10.2 H (1.3-7.7) k/uL Sodium 135 L (137-145) mmol/L Glucose 106 H (74-99) mg/dL AST 39 H (14-36) U/L ALT 35 H (4-34) U/L Ur Specific [place] 1.044 H (1.001-1.035) Urine Ketones Trace H (Negative)
[2022-05-05] MEDS: SODIUM CHLORIDE 0.9% 1,000 ML IV SCH ×3 (04:05→17:42)
[2022-05-05] MEDS: MORPHINE SULFATE 4 MG/ML SYRINGE IV PRN ×2 (05:34→10:29)
[2022-05-05] MEDS: HEPARIN SODIUM,PORCINE/PF 5,000 UNIT/0.5 ML SYRINGE SQ SCH ×2 (07:56→16:09)
[2022-05-05 12:01] LABS: African American GFR (CKD) 103.9 (60.0-200.0); Anion Gap 10.6 mmol/L (10.00-18.00); Calcium 8.9 mg/dL (8.7-10.3); Carbon Dioxide 23.4 mmol/L (20.0-27.5); Non-African American GFR(CKD) 89.7 (60.0-200.0); Potassium 4.4 mmol/L (3.5-5.5)
[2022-05-05 12:14] LABS: Basophils # (A) 0.06 X 10*3/uL (0.00-0.10); Basophils % (A) 0.5 %; Eosinophils # (A) 0.06 X 10*3/uL (0.04-0.35); Eosinophils % (A) 0.5 %; HCT 37.4 % (37.2-46.3); HGB 11.6 g/dL (12.0-15.0); Immature Grans, Automated 0.7 %; Lymphocytes # (A) 1.29 X 10*3/uL (0.90-5.00); Lymphocytes % (A) 11.4 %; MCH 27.3 pg (27.0-32.0); Mean Platelet Volume 10.1 fL (9.5-12.2); Monocytes # (A) 1.29 X 10*3/uL (0.20-1.00); Monocytes % (A) 11.4 %; NRBC Per 100 WBC 0 /100 WBCS (0.0-0.0); Neutrophils # (A) 8.57 X 10*3/uL (1.80-7.70); Neutrophils % (A) 75.5 %; Platelet Count 272 X 10*3/uL (140-440); RBC 4.25 X 10*6/uL (4.10-5.20); RDW 14.2 % (11.5-14.5); WBC 11.35 X 10*3/uL (4.50-10.00)
[2022-05-05 13:22] VITALS: BMI 30.3
--- NOTE | 2022-05-05 13:42 | P.GSCN ---
History of Present Illness Consult date: 05/05/22 History of present illness: REASON FOR CONSULTATION: Diverticulitis HISTORY OF PRESENT ILLNESS: The patient is a 66 year old female who comes in with lower abdominal pain from yesterday due to diverticulitis. Patient reports recent colonoscopy done by picture painter Dr. Allen from [place]. She reports long lasting history of abdominal pain for over 8 years including change in bowel habits. She was told to avoid seeds. Patient reports eating seed mix. She reports taking morphine with improvement of lower abdominal pain. She is also wanting to go home. No blood in stools. PAST MEDICAL HISTORY: See list and reviewed PAST SURGICAL HISTORY: See list and reviewed MEDICATIONS: See list and reviewed ALLERGIES: See list and reviewed SOCIAL HISTORY: See list and reviewed FAMILY HISTORY: See list and reviewed REVIEW OF ORGAN SYSTEMS: CONSTITUTIONAL: No fevers or chills. No recent weight loss. EYES: Has cataracts. HEENT: No difficulties with hearing. No nosebleeds. No difficulty swallowing. RESPIRATORY: Denies pneumonia. Denies any troubles with breathing or dyspnea on exertion. CARDIOVASCULAR: Denies any chest pain, palpitations, or recent heart attacks. Has hyperlipdemia. GASTROINTESTINAL: Denies fatty food intolerance. Has change in bowel habits and gas bloat. GENITOURINARY: Denies any blood in urine or increased urinary frequency. NEUROLOGICAL: Denies any numbness or tingling along the distal extremities. No seizure disorders or headaches. MUSCULOSKELETAL: Has back pain, stiffness or joint arthritis. SKIN: No current skin cancer. No rash. PSYCHIATRIC: Denies current depression or suicidal thoughts. ENDOCRINE: Denies current thyroid disorders. Denies any blood sugar glucose intolerance. HEME/LYMPHATIC: Denies any lumps and bumps around the neck. No recent deep venous thrombosis. ALLERGY/IMMUNOLOGY: No immunoglobulin therapy. No immune deficiencies. BREAST: Denies current breast lumps, pain or nipple discharge. PHYSICAL EXAM: VITALS: Reviewed CONSTITUTIONAL: Well developed and in no acute distress. EYES: Conjuctivae without sclera icterus. Extraocular movements grossly intact. HEAD, EARS, NOSE, THROAT: Moist buccal mucosa. Head is atraumatic, normocephalic. Hears conversational speech. No nasal drainage. NECK: Supple. No JV distention. No thyroidomegaly. RESPIRATORY: Non-labored respirations and equal bilateral excursions. No gross wheezes. CARDIOVASCULAR: Palpable 2+ radial pulses. ABDOMEN: No peritonitis. Lower abdominal pain. LYMPH: No neck lymphadenopathy. MUSCULOSKELETAL: NO clubbing, cyanosis or edema. SKIN: Warm and well perfused with good skin turgor. NEUROLOGIC: Cranial nerves II through XII grossly intact. No focal or lateralizing signs. PSYCH: Appropriate affect. Alert and oriented to person, place and time. Displays appropriate insight. CLINCAL LABS: Reviewed. WBC elevated 13.1 on admission. Hgb normal 13.6 on admission. AST and ALT is elevated. IMAGING: Independently reviewed. CT of the abdomen and pelvis independently reviewed with findings of abscess of the mucosal wall. Without free perforation. Localized abscess identified. RADIOLOGY: Report reviewed of the CT of the abdomen and pelvis demonstrates left ovarian cyst with intraluminal abscess 1.2 cm. ASSESSMENT: 1. Sigmoid diverticulitis PLAN: 1. IV fluid hydration 2. Recommend continued antibiotics. 3. May start ice chips popsicles versus liquid diet. 4. Continue hospitalization at this time. 5. Repeat CBC and CMP ADVANCE DIRECTIVE: Thank you for this kind consultation. Past Medical History Past Medical History: Osteoarthritis (OA) Additional Past Medical History / Comment(s): Cataracts. Patient states she has planned surgery for cataract removal in the next few weeks. History of Any Multi-Drug Resistant Organisms: None Reported Past Surgical History: Hysterectomy, Joint Replacement Additional Past Surgical History / Comment(s): rt foot bunionectomy Past Anesthesia/Blood Transfusion Reactions: Previous Problems w/ Anesthesia, Motion Sickness Additional Past Anesthesia/Blood Transfusion Reaction / Comm: hard time waking up Past Psychological History: No Psychological Hx Reported Smoking Status: Never smoker Past Alcohol Use History: None Reported Past Drug Use History: None Reported - Past Family History Father Family Medical History: Deep Vein Thrombosis (DVT) Son(s) Family Medical History: Cancer Medications and Allergies Home Medications Medication Instructions Recorded Confirmed Type Atorvastatin [Lipitor] 10 mg PO DAILY 09/02/20 05/04/22 History Allergies Allergy/AdvReac Type Severity Reaction Status Date / Time amoxicillin Allergy Rash/Hives Verified 05/04/22 16:49 Penicillins Allergy Rash/Hives Verified 05/04/22 16:50 Surgical - Exam Vital Signs Temp Pulse Resp BP Pulse Ox 98.3 F 98 20 121/85 97 05/04/22 13:38 05/04/22 13:38 05/04/22 13:38 05/04/22 13:38 05/04/22 13:38 Results - Labs 05/05/22 06:33 05/05/22 06:33 Abnormal Lab Results - Last 24 Hours (Table) 05/04/22 05/04/22 05/04/22 Range/Units 16:35 16:35 16:35 WBC 13.1 H (3.8-10.6) k/uL Hgb (12.0-15.0) g/dL MCHC (32.0-37.0) g/dL Immature Gran # (0.00-0.04) X 10*3/uL Neutrophils # 10.2 H (1.3-7.7) k/uL Monocytes # (0.20-1.00) X 10*3/uL Sodium 135 L (137-145) mmol/L BUN (9.0-27.0) mg/dL BUN/Creatinine Ratio (12.00-20.00) Ratio Glucose 106 H (74-99) mg/dL AST 39 H (14-36) U/L ALT 35 H (4-34) U/L Procalcitonin (0.02-0.09) ng/mL Ur Specific [place] 1.044 H (1.001-1.035) Urine Ketones Trace H (Negative) 05/04/22 05/05/22 05/05/22 Range/Units 16:35 06:33 06:33 WBC 11.35 H (3.8-10.6) k/uL Hgb 11.6 L (12.0-15.0) g/dL MCHC 31.0 L (32.0-37.0) g/dL Immature Gran # 0.08 H (0.00-0.04) X 10*3/uL Neutrophils # 8.57 H (1.3-7.7) k/uL Monocytes # 1.29 H (0.20-1.00) X 10*3/uL Sodium (137-145) mmol/L BUN 7.0 L (9.0-27.0) mg/dL BUN/Creatinine Ratio 10.00 L (12.00-20.00) Ratio Glucose (74-99) mg/dL AST (14-36) U/L ALT (4-34) U/L Procalcitonin 0.12 H (0.02-0.09) ng/mL Ur Specific [place] (1.001-1.035) Urine Ketones (Negative) Diabetes panel 05/04/22 05/05/22 Range/Units 16:35 06:33 Sodium 135 L 137 (137-145) mmol/L Potassium 4.5 4.4 (3.5-5.1) mmol/L Chloride 101 103 (98-107) mmol/L Carbon Dioxide 24 23.4 (22-30) mmol/L BUN 8 7.0 L (7-17) mg/dL Creatinine 0.72 0.7 (0.52-1.04) mg/dL Glucose 106 H 102 (74-99) mg/dL Calcium 9.4 8.9 (8.4-10.2) mg/dL AST 39 H (14-36) U/L ALT 35 H (4-34) U/L Alkaline Phosphatase 93 (38-126) U/L Total Protein 7.0 (6.3-8.2) g/dL Albumin 3.9 (3.5-5.0) g/dL Calcium panel 05/04/22 05/05/22 Range/Units 16:35 06:33 Calcium 9.4 8.9 (8.4-10.2) mg/dL Albumin 3.9 (3.5-5.0) g/dL Pituitary panel 05/04/22 05/05/22 Range/Units 16:35 06:33 Sodium 135 L 137 (137-145) mmol/L Potassium 4.5 4.4 (3.5-5.1) mmol/L Chloride 101 103 (98-107) mmol/L Carbon Dioxide 24 23.4 (22-30) mmol/L BUN 8 7.0 L (7-17) mg/dL Creatinine 0.72 0.7 (0.52-1.04) mg/dL Glucose 106 H 102 (74-99) mg/dL Calcium 9.4 8.9 (8.4-10.2) mg/dL Adrenal panel 05/04/22 05/05/22 Range/Units 16:35 06:33 Sodium 135 L 137 (137-145) mmol/L Potassium 4.5 4.4 (3.5-5.1) mmol/L Chloride 101 103 (98-107) mmol/L Carbon Dioxide 24 23.4 (22-30) mmol/L BUN 8 7.0 L (7-17) mg/dL Creatinine 0.72 0.7 (0.52-1.04) mg/dL Glucose 106 H 102 (74-99) mg/dL Calcium 9.4 8.9 (8.4-10.2) mg/dL Total Bilirubin 0.7 (0.2-1.3) mg/dL AST 39 H (14-36) U/L ALT 35 H (4-34) U/L Alkaline Phosphatase 93 (38-126) U/L Total Protein 7.0 (6.3-8.2) g/dL Albumin 3.9 (3.5-5.0) g/dL
--- NOTE | 2022-05-05 15:08 | P.PN ---
Subjective Progress Note Date: 05/05/22 66-year-old female admitted yesterday with acute diverticulitis. She was started on IV Flagyl and levofloxacin, IV fluids, and IV narcotics. Her abdominal pain has significantly improved today. She denies any nausea or vomiting, she has had no bowel movements in the last 24 hours. She has been afebrile, vital signs of stable. overall improving and unlikely to need surgery Objective - Vital Signs Vital signs: Vital Signs Temp 98.4 F 05/05/22 07:52 Pulse 68 05/05/22 07:52 Resp 17 05/05/22 07:52 BP 98/66 05/05/22 07:52 Pulse Ox 97 05/05/22 07:52 FiO2 Intake & Output 05/04/22 05/05/22 05/05/22 18:59 06:59 18:59 Intake Total 0 Balance 0 Weight 85.275 kg 85.275 kg 85.275 kg Intake: Oral 0 - Exam General: non toxic, no distress, appears at stated age, normal weight Derm: no unusual rashes/lesions, warm Head: atraumatic, normocephalic Eyes: EOMI, anicteric sclera, pupils equal round reactive to light Neck: No cervical lymphadenopathy, trachea midline, supple Mouth: no lip lesion, mucus membranes moist Cardiovascular: S1S2 reg, no murmur, positive dorsalis pedis pulse bilateral, no edema Lungs: CTA bilateral, no rhonchi, no rales, no accessory muscle use Abdominal: soft, left lower quadrant suprapubic tenderness to palpation with no guarding, hypoactive bowel sounds Ext: muscle strength 5 out of 5 in all 4 extremities grossly, no gross muscle atrophy, no contractures, Neuro: CN II-XI grossly intact, no gross focal - Labs CBC & Chem 7: 05/05/22 06:33 05/05/22 06:33 Labs: Abnormal Lab Results - Last 24 Hours (Table) 05/04/22 05/04/22 05/04/22 Range/Units 16:35 16:35 16:35 WBC 13.1 H (3.8-10.6) k/uL Hgb (12.0-15.0) g/dL MCHC (32.0-37.0) g/dL Immature Gran # (0.00-0.04) X 10*3/uL Neutrophils # 10.2 H (1.3-7.7) k/uL Monocytes # (0.20-1.00) X 10*3/uL Sodium 135 L (137-145) mmol/L BUN (9.0-27.0) mg/dL BUN/Creatinine Ratio (12.00-20.00) Ratio Glucose 106 H (74-99) mg/dL AST 39 H (14-36) U/L ALT 35 H (4-34) U/L Procalcitonin (0.02-0.09) ng/mL Ur Specific [place] 1.044 H (1.001-1.035) Urine Ketones Trace H (Negative) 05/04/22 05/05/22 05/05/22 Range/Units 16:35 06:33 06:33 WBC 11.35 H (3.8-10.6) k/uL Hgb 11.6 L (12.0-15.0) g/dL MCHC 31.0 L (32.0-37.0) g/dL Immature Gran # 0.08 H (0.00-0.04) X 10*3/uL Neutrophils # 8.57 H (1.3-7.7) k/uL Monocytes # 1.29 H (0.20-1.00) X 10*3/uL Sodium (137-145) mmol/L BUN 7.0 L (9.0-27.0) mg/dL BUN/Creatinine Ratio 10.00 L (12.00-20.00) Ratio Glucose (74-99) mg/dL AST (14-36) U/L ALT (4-34) U/L Procalcitonin 0.12 H (0.02-0.09) ng/mL Ur Specific [place] (1.001-1.035) Urine Ketones (Negative) Assessment and Plan Assessment: # Sigmoid Diverticulitis with abscess -improving -Continue with IV antibiotics: Flagyl and Levaquin -IV fluids -Antiemetics -advance diet as tolerated # HLD -continue Statin DVT prophylaxis -Heparin subcu Anticipated discharge date: in 24-[address]: Home Time with Patient: Less than 30
[2022-05-05] MEDS ORDERED: LEVOFLOXACIN 750MG-D5W PMX 750 MG in DEXTROSE/WATER 1 150ML.BAG IVPB SCH (22:00)
[2022-05-06] MEDS: HEPARIN SODIUM,PORCINE/PF 5,000 UNIT/0.5 ML SYRINGE SQ SCH ×3 (00:02→15:47)
[2022-05-06] MEDS: metroNIDAZOLE-NS PMX 500 MG in SALINE 1 100ML.BAG IVPB SCH ×4 (00:02→17:25)
[2022-05-06] MEDS: SODIUM CHLORIDE 0.9% 1,000 ML IV SCH ×3 (00:03→17:02)
[2022-05-06] MEDS: MORPHINE SULFATE 4 MG/ML SYRINGE IV PRN ×2 (03:20→12:34)
[2022-05-06 09:36] LABS: African American GFR (CKD) 109.3 (60.0-200.0); Albumin/Globulin Ratio 1.25 (1.60-3.17); Anion Gap 9.7 mmol/L (10.00-18.00); BUN/Creat Ratio 10.67 Ratio (12.00-20.00); Blood Urea Nitrogen 6.4 mg/dL (9.0-27.0); Calcium 8.7 mg/dL (8.7-10.3); Carbon Dioxide 25.3 mmol/L (20.0-27.5); Globulin 2.4 g/dL (1.6-3.3); Non-African American GFR(CKD) 94.3 (60.0-200.0); Potassium 4.6 mmol/L (3.5-5.5); Total Bilirubin 0.3 mg/dL (0.30-1.20); Total Protein 5.4 g/dL (6.2-8.2)
[2022-05-06 10:29] LABS: Basophils # (A) 0.05 X 10*3/uL (0.00-0.10); Basophils % (A) 0.4 %; Eosinophils # (A) 0.05 X 10*3/uL (0.04-0.35); Eosinophils % (A) 0.4 %; HCT 35.6 % (37.2-46.3); HGB 11.2 g/dL (12.0-15.0); Lymphocytes # (A) 2.02 X 10*3/uL (0.90-5.00); Lymphocytes % (A) 17.8 %; MCH 27.8 pg (27.0-32.0); MCHC 31.5 g/dL (32.0-37.0); MCV 88.3 fL (80.0-97.0); Mean Platelet Volume 10.4 fL (9.5-12.2); Monocytes # (A) 0.94 X 10*3/uL (0.20-1.00); Monocytes % (A) 8.3 %; NRBC Per 100 WBC 0 /100 WBCS (0.0-0.0); Neutrophils # (A) 8.15 X 10*3/uL (1.80-7.70); Neutrophils % (A) 72.1 %; Platelet Count 272 X 10*3/uL (140-440); RBC 4.03 X 10*6/uL (4.10-5.20); RDW 13.8 % (11.5-14.5); WBC 11.32 X 10*3/uL (4.50-10.00)
--- NOTE | 2022-05-06 12:48 | P.PN ---
Subjective Progress Note Date: 05/06/22 CHIEF COMPLAINT: Diverticulitis HISTORY OF PRESENT ILLNESS: The patient is a 66 year old female who comes in diverticulitis. Patient still reports lower abdominal pain. WBC is still elevated despite Levaquin and Flagyl. REVIEW OF ORGAN SYSTEMS: No fevers or chills. Denies pneumonia. Denies fatty food intolerance. PHYSICAL EXAM: VITALS: Reviewed CONSTITUTIONAL: Well developed and in no acute distress. EYES: Conjuctivae without sclera icterus. Extraocular movements grossly intact. HEAD, EARS, NOSE, THROAT: Moist buccal mucosa. Head is atraumatic, normocephalic. Hears conversational speech. No nasal drainage. RESPIRATORY: Non-labored respirations and equal bilateral excursions. No gross wheezes. CARDIOVASCULAR: Palpable 2+ radial pulses. ABDOMEN: No peritonitis. Lower abdominal pain. MUSCULOSKELETAL: NO clubbing, cyanosis or edema. SKIN: Warm and well perfused with good skin turgor. NEUROLOGIC: Cranial nerves II through XII grossly intact. No focal or lateralizing signs. PSYCH: Appropriate affect. Alert and oriented to person, place and time. Displays appropriate insight. CLINCAL LABS: Reviewed. WBC elevated 11.6 to 11.2. WBC elevated 11.35 to 11.32 ASSESSMENT: 1. Sigmoid diverticulitis PLAN: 1. Recommend infectious disease consultation for complicated diverticulitis. 2. May have clear liquid diet. 3. Adjust pain medications to scheduled nonnarcotic. 4. Continue hospitalization due to complicated diverticulitis Objective - Vital Signs Vital signs: Vital Signs Temp 98.7 F 05/06/22 08:00 Pulse 83 05/06/22 08:00 Resp 16 05/06/22 08:00 BP 135/80 05/06/22 08:00 Pulse Ox 98 05/06/22 08:00 FiO2 Intake & Output 05/05/22 05/06/22 05/06/22 18:59 06:59 18:59 Intake Total 480 Balance 480 Weight 85.275 kg Intake: Oral 480 Other: # Voids 2 2 - Labs CBC & Chem 7: 05/06/22 05:33 05/06/22 05:33 Labs: Abnormal Lab Results - Last 24 Hours (Table) 05/06/22 05/06/22 Range/Units 05:33 05:33 WBC 11.32 H (4.50-10.00) X 10*3/uL RBC 4.03 L (4.10-5.20) X 10*6/uL Hgb 11.2 L (12.0-15.0) g/dL Hct 35.6 L (37.2-46.3) % MCHC 31.5 L (32.0-37.0) g/dL Immature Gran # 0.11 H (0.00-0.04) X 10*3/uL Neutrophils # 8.15 H (1.80-7.70) X 10*3/uL Anion Gap 9.70 L (10.00-18.00) mmol/L BUN 6.4 L (9.0-27.0) mg/dL BUN/Creatinine Ratio 10.67 L (12.00-20.00) Ratio Total Protein 5.4 L (6.2-8.2) g/dL Albumin 3.0 L (3.8-4.9) g/dL Albumin/Globulin Ratio 1.25 L (1.60-3.17) g/dL Microbiology - Last 24 Hours (Table) 05/04/22 19:45 Blood Culture - Preliminary Blood No Growth after 24 hours 05/04/22 20:00 Blood Culture - Preliminary Blood No Growth after 24 hours
--- NOTE | 2022-05-06 14:53 | P.PN ---
Subjective Progress Note Date: 05/06/22 Hospital Course 66-year-old female admitted yesterday with acute diverticulitis. She was started on IV Flagyl and levofloxacin, IV fluids, and IV narcotics. Her abdominal pain has significantly improved today. She denies any nausea or vomiting, she has had no bowel movements in the last 24 hours. She has been afebrile, vital signs of stable. overall improving and unlikely to need surgery Subjetive [facility] Physical examination General: non toxic, no distress, appears at stated age, normal weight Derm: no unusual rashes/lesions, warm Head: atraumatic, normocephalic Eyes: EOMI, anicteric sclera, pupils equal round reactive to light Neck: No cervical lymphadenopathy, trachea midline, supple Mouth: no lip lesion, mucus membranes moist Cardiovascular: S1S2 reg, no murmur, positive dorsalis pedis pulse bilateral, no edema Lungs: CTA bilateral, no rhonchi, no rales, no accessory muscle use Abdominal: soft, left lower quadrant suprapubic tenderness to palpation with no guarding, hypoactive bowel sounds Ext: muscle strength 5 out of 5 in all 4 extremities grossly, no gross muscle atrophy, no contractures, Neuro: CN II-XI grossly intact, no gross focal Assessment and plan # Sigmoid Diverticulitis with abscess -improving -Continue with IV antibiotics: IV ceftriaxone and Flagyl -IV fluids -Antiemetics -advance diet as tolerated -General surgery infection disease following # HLD -continue Statin DVT prophylaxis -Heparin subcu Discharge plan: Advance diet as able next 1-2 days plan to discharge on oral antibiotic with a plan to follow with general surgery or gastroenterology as an outpatient for colonoscopy in 6-8 weeks Objective - Vital Signs Vital signs: Vital Signs Temp 98.7 F 05/06/22 08:00 Pulse 83 05/06/22 08:00 Resp 16 05/06/22 08:00 BP 135/80 05/06/22 08:00 Pulse Ox 98 05/06/22 08:00 FiO2 Intake & Output 05/05/22 05/06/22 05/06/22 18:59 06:59 18:59 Intake Total 480 Balance 480 Weight 85.275 kg Intake: Oral 480 Other: # Voids 2 2 - Labs CBC & Chem 7: 05/06/22 05:33 05/06/22 05:33 Labs: Abnormal Lab Results - Last 24 Hours (Table) 05/06/22 05/06/22 Range/Units 05:33 05:33 WBC 11.32 H (4.50-10.00) X 10*3/uL RBC 4.03 L (4.10-5.20) X 10*6/uL Hgb 11.2 L (12.0-15.0) g/dL Hct 35.6 L (37.2-46.3) % MCHC 31.5 L (32.0-37.0) g/dL Immature Gran # 0.11 H (0.00-0.04) X 10*3/uL Neutrophils # 8.15 H (1.80-7.70) X 10*3/uL Anion Gap 9.70 L (10.00-18.00) mmol/L BUN 6.4 L (9.0-27.0) mg/dL BUN/Creatinine Ratio 10.67 L (12.00-20.00) Ratio Total Protein 5.4 L (6.2-8.2) g/dL Albumin 3.0 L (3.8-4.9) g/dL Albumin/Globulin Ratio 1.25 L (1.60-3.17) g/dL Microbiology - Last 24 Hours (Table) 05/04/22 19:45 Blood Culture - Preliminary Blood No Growth after 24 hours 05/04/22 20:00 Blood Culture - Preliminary Blood No Growth after 24 hours
[2022-05-06] MEDS: ACETAMINOPHEN IV (For NPO) 1,000 MG in EMPTY BAG 1 BAG IVPB SCH ×2 (17:25→23:36)
[2022-05-06] MEDS: KETOROLAC 15 MG/ML 1 ML VIAL IVP SCH (17:25)
--- NOTE | 2022-05-06 22:32 | P.CONS ---
History of Present Illness - Reason for Consult Consult date: 05/06/22 - History of Present Illness Patient is a 66-year female with a past medical history significant for osteoarthritis chronic bowel issues with constipation apparently recently did have a colonoscopy and right diagnosed with diverticulosis presenting to the hospital with left-sided abdominal pain which apparently started 2 days before presentation to the hospital patient described the pain to be more of a sharp in nature intensity is almost 10 out of 10 by the time he presented to hospital with associated nausea but no vomiting and no significant radiation of the pain patient denies high-grade fever on presentation to the hospital the patient was afebrile and no significant fever have been recorded subsequently patient did have white count of 13,000 with a left shift creatinine has been normal there was a slightly elevated repeat was normal urine has been negative, leukocytes and influenza was negative patient did have a CT of abdominal pelvis which did show a wall thickening inflammatory changes involving the sigmoid colon small intramural abscess difficult to exclude patient was started on Levaquin and Flagyl because of penicillin allergy infectious disease was consulted for further management of antibiotic therapy Past Medical History Past Medical History: Osteoarthritis (OA) Additional Past Medical History / Comment(s): Cataracts. Patient states she has planned surgery for cataract removal in the next few weeks. History of Any Multi-Drug Resistant Organisms: None Reported Past Surgical History: Hysterectomy, Joint Replacement Additional Past Surgical History / Comment(s): rt foot bunionectomy Past Anesthesia/Blood Transfusion Reactions: Previous Problems w/ Anesthesia, Motion Sickness Additional Past Anesthesia/Blood Transfusion Reaction / Comm: hard time waking up Past Psychological History: No Psychological Hx Reported Smoking Status: Never smoker Past Alcohol Use History: None Reported Past Drug Use History: None Reported - Past Family History Father Family Medical History: Deep Vein Thrombosis (DVT) Son(s) Family Medical History: Cancer Medications and Allergies Home Medications Medication Instructions Recorded Confirmed Type Atorvastatin [Lipitor] 10 mg PO DAILY 09/02/20 05/04/22 History Allergies Allergy/AdvReac Type Severity Reaction Status Date / Time amoxicillin Allergy Rash/Hives Verified 05/04/22 16:49 Penicillins Allergy Rash/Hives Verified 05/04/22 16:50 Physical Exam Vitals: Vital Signs Temp Pulse Resp BP Pulse Ox 05/06/22 08:00 98.7 F 83 16 135/80 98 05/06/22 07:47 95 05/06/22 02:00 98.7 F 68 12 126/71 97 Intake and Output 05/05/22 05/06/22 05/06/22 22:59 06:59 14:59 Intake Total 480 Balance 480 Intake: Oral 480 Other: # Voids 2 2 Results CBC & Chem 7: 05/06/22 05:33 05/06/22 05:33 Labs: Abnormal Lab Results - Last 24 Hours (Table) 05/06/22 05/06/22 Range/Units 05:33 05:33 WBC 11.32 H (4.50-10.00) X 10*3/uL RBC 4.03 L (4.10-5.20) X 10*6/uL Hgb 11.2 L (12.0-15.0) g/dL Hct 35.6 L (37.2-46.3) % MCHC 31.5 L (32.0-37.0) g/dL Immature Gran # 0.11 H (0.00-0.04) X 10*3/uL Neutrophils # 8.15 H (1.80-7.70) X 10*3/uL Anion Gap 9.70 L (10.00-18.00) mmol/L BUN 6.4 L (9.0-27.0) mg/dL BUN/Creatinine Ratio 10.67 L (12.00-20.00) Ratio Total Protein 5.4 L (6.2-8.2) g/dL Albumin 3.0 L (3.8-4.9) g/dL Albumin/Globulin Ratio 1.25 L (1.60-3.17) g/dL Microbiology - Last 24 Hours (Table) 05/04/22 19:45 Blood Culture - Preliminary Blood No Growth after 24 hours 05/04/22 20:00 Blood Culture - Preliminary Blood No Growth after 24 hours Assessment and Plan Plan: 1patient presented hospital with abdominal pain nausea vomiting did have elevated white count has been diagnosed with acute sigmoid diverticulitis with no evidence of any perforation or extramural abscess there was a question of possible intramural abscess and will need to call for the enteric gram-negative both aerobes and anaerobes. 2patient to have a penicillin allergy however did mention she has taken Augmentin without any problem and used to get before Before Her Dental Procedure and Seem to Have Been Doing Okay with That Clinical Note to Penicillin Allergy. 3Discontinue Levaquin. 4Continue the Flagyl and Will Add Rocephin 2 G Daily. We will follow on clinical condition and cultures to further adjust medication if needed Thank you for this consultation will follow this patient along with you Time with Patient: Greater than 30
[2022-05-07] MEDS: metroNIDAZOLE-NS PMX 500 MG in SALINE 1 100ML.BAG IVPB SCH ×4 (00:17→17:02)
[2022-05-07] MEDS: HEPARIN SODIUM,PORCINE/PF 5,000 UNIT/0.5 ML SYRINGE SQ SCH ×3 (00:17→17:03)
[2022-05-07] MEDS: KETOROLAC 15 MG/ML 1 ML VIAL IVP SCH ×4 (00:17→17:00)
[2022-05-07] MEDS: SODIUM CHLORIDE 0.9% 1,000 ML IV SCH ×3 (01:36→17:04)
[2022-05-07 03:20] LABS: Mycoplasma IgG Antibody (EIA) 2.01 INDEX (<=0.90); Mycoplasma IgM Antibody 0.25 INDEX (<=0.90)
[2022-05-07] MEDS: ACETAMINOPHEN IV (For NPO) 1,000 MG in EMPTY BAG 1 BAG IVPB SCH ×2 (05:35→11:03)
[2022-05-07 08:29] LABS: Basophils # (A) 0.06 X 10*3/uL (0.00-0.10); Basophils % (A) 0.6 %; Eosinophils # (A) 0.09 X 10*3/uL (0.04-0.35); HCT 36.3 % (37.2-46.3); HGB 11.4 g/dL (12.0-15.0); Immature Grans, Automated 1.1 %; Lymphocytes # (A) 2.23 X 10*3/uL (0.90-5.00); Lymphocytes % (A) 23.7 %; MCH 27.4 pg (27.0-32.0); MCHC 31.4 g/dL (32.0-37.0); MCV 87.3 fL (80.0-97.0); Mean Platelet Volume 10.4 fL (9.5-12.2); Monocytes # (A) 0.96 X 10*3/uL (0.20-1.00); Monocytes % (A) 10.2 %; NRBC Per 100 WBC 0 /100 WBCS (0.0-0.0); Neutrophils # (A) 5.98 X 10*3/uL (1.80-7.70); Neutrophils % (A) 63.4 %; Platelet Count 308 X 10*3/uL (140-440); RBC 4.16 X 10*6/uL (4.10-5.20); WBC 9.42 X 10*3/uL (4.50-10.00)
[2022-05-07 08:47] LABS: African American GFR (CKD) 107.3 (60.0-200.0); Albumin/Globulin Ratio 1.25 (1.60-3.17); Anion Gap 10.1 mmol/L (10.00-18.00); BUN/Creat Ratio 6.11 Ratio (12.00-20.00); Blood Urea Nitrogen 3.9 mg/dL (9.0-27.0); Calcium 8.8 mg/dL (8.7-10.3); Carbon Dioxide 24.8 mmol/L (20.0-27.5); Globulin 2.4 g/dL (1.6-3.3); Non-African American GFR(CKD) 92.6 (60.0-200.0); Potassium 3.8 mmol/L (3.5-5.5); Total Bilirubin 0.2 mg/dL (0.30-1.20); Total Protein 5.4 g/dL (6.2-8.2)
--- NOTE | 2022-05-07 14:49 | P.PN ---
Subjective Progress Note Date: 05/07/22 CHIEF COMPLAINT: Diverticulitis HISTORY OF PRESENT ILLNESS: Patient reports improvement in her abdominal pain. She denies any nausea or vomiting. She reports having a bowel movement. This morning she had reported some discomfort after taking the clear liquids. That this has now resolved. Her white count has normalized from 11.32 to 9.42. She's afebrile. Patient seen by infectious disease. Antibiotics adjusted. PHYSICAL EXAM: VITAL SIGNS: Reviewed GENERAL: Well-developed in no acute distress. HEENT: No sclera icterus. Extraocular movements grossly intact. Moist buccal mucosa. Head is atraumatic, normocephalic. Hears conversational speech. No nasal drainage. NECK: Supple without lymphadenopathy. CHEST: Non-labored respirations and equal bilateral excursions. CARDIOVASCULAR: Palpable 2+ radial pulses. ABDOMEN: Soft. Nondistended. Nontender. MUSCULOSKELETAL: No clubbing or cyanosis. NEUROLOGIC: No focal or lateralizing signs. Cranial nerves II through XII grossly intact. PSYCH: Appropriate affect. Alert and oriented to person, place and time. SKIN: Well perfused. Good skin turgor. ASSESSMENT: 1. Sigmoid diverticulitis with abscess PLAN: -Advance diet to full liquids for dinner and then low fiber in the morning -Repeat CBC in a.m. -Consult dietitian for diverticular diet education -Encouraged patient to ambulate -Continue antibiotics per infectious disease -Continued scheduled non-narcotic pain meds Physician [employer] note has been reviewed by physician. Signing provider agrees with the documented findings, assessment, and plan of care. CHIEF COMPLAINT: Diverticulitis HISTORY OF PRESENT ILLNESS: The patient is a 66 year old female who presented with complicated diverticulitis. Patient's antibiotics were adjusted per infectious disease and now with blood cell count is improving. Patient notes improvement of her abdominal pain compared to yesterday. REVIEW OF ORGAN SYSTEMS: No fevers or chills. Denies pneumonia. Denies fatty food intolerance. PHYSICAL EXAM: VITALS: Reviewed CONSTITUTIONAL: Well developed and in no acute distress. EYES: Conjuctivae without sclera icterus. Extraocular movements grossly intact. HEAD, EARS, NOSE, THROAT: Moist buccal mucosa. Head is atraumatic, normocephalic. Hears conversational speech. No nasal drainage. RESPIRATORY: Non-labored respirations and equal bilateral excursions. No gross wheezes. CARDIOVASCULAR: Palpable 2+ radial pulses. ABDOMEN: No peritonitis. MUSCULOSKELETAL: No clubbing, cyanosis or edema. SKIN: Warm and well perfused with good skin turgor. NEUROLOGIC: Cranial nerves II through XII grossly intact. No focal or lateralizing signs. PSYCH: Appropriate affect. Alert and oriented to person, place and time. Displays appropriate insight. CLINCAL LABS: Reviewed. WBC elevated 11.6 to 11.2, now normal 9.4 ASSESSMENT: 1. Sigmoid diverticulitis PLAN: 1. Continue with clear liquid diet but may advance to full liquid diet for dinner. 2. Recommend repeat CBC for trend responsive to treatment and advancement of diet 3. Discharge pending no rebound leukocytosis, tolerating diet 4. Anticipate low fiber diet in 24 hours. Objective - Vital Signs Vital signs: Vital Signs Temp 98.5 F 05/07/22 07:21 Pulse 63 05/07/22 07:21 Resp 16 05/07/22 07:21 BP 128/79 05/07/22 07:21 Pulse Ox 95 05/07/22 08:44 FiO2 Intake & Output 05/06/22 05/07/22 05/07/22 18:59 06:59 18:59 Intake Total 1070 Balance 1070 Intake: Oral 1070 Other: # Voids 4 3 - Labs CBC & Chem 7: 05/07/22 05:53 05/07/22 05:53 Labs: Abnormal Lab Results - Last 24 Hours (Table) 05/04/22 05/07/22 05/07/22 Range/Units 16:35 05:53 05:53 Hgb 11.4 L (12.0-15.0) g/dL Hct 36.3 L (37.2-46.3) % MCHC 31.4 L (32.0-37.0) g/dL Immature Gran # 0.10 H (0.00-0.04) X 10*3/uL BUN 3.9 L (9.0-27.0) mg/dL BUN/Creatinine Ratio 6.11 L (12.00-20.00) Ratio Total Bilirubin 0.20 L (0.30-1.20) mg/dL Total Protein 5.4 L (6.2-8.2) g/dL Albumin 3.0 L (3.8-4.9) g/dL Albumin/Globulin Ratio 1.25 L (1.60-3.17) g/dL Mycoplasma pneumon IgG 2.01 H (<=0.90) INDEX Microbiology - Last 24 Hours (Table) 05/04/22 20:00 Blood Culture - Preliminary Blood No Growth after 48 hours 05/04/22 19:45 Blood Culture - Preliminary Blood No Growth after 48 hours
--- NOTE | 2022-05-07 15:21 | P.PN ---
Subjective Progress Note Date: 05/07/22 (delayed charting seen at 1130) Patient is a 66-year-old female with dyslipidemia, chronic abdominal pain, and osteoarthritis who presented with complaints of worsening abdominal pain. The ER she underwent an extensive evaluation. CT abdomen and pelvis revealed diverticulitis with abscess. Laboratory analysis showed a white blood cell count of 13.1, lactic acid 1.2, and mildly elevated transaminases. She was admitted and was started on IV fluids and antibiotics. Surgery was consulted. Infectious disease was consulted her Levaquin was discontinued and she was started on Rocephin. She continued to improve on her IV antibiotics. Patient seen and examined at bedside. Her abdominal pain is much improved. She had a normal for bowel movement yesterday. She denies any nausea or vomiting. She is feeling hungry. General: nontoxic, no distress, appears at stated age Derm: warm, dry Head: atraumatic, normocephalic, symmetric Eyes: EOMI, no lid lag, anicteric sclera Mouth: no lip lesion, mucus membranes moist Cardiovascular: S1S2 reg, no murmur, positive posterior tibial pulse bilateral, Lungs: CTA bilateral, no rhonchi, no rales , no accessory muscle use Abdominal: soft, nontender to palpation, no guarding, no appreciable organomegaly Ext: no gross muscle atrophy, no edema, no contractures Neuro: CN II-XI grossly intact, no focal neuro deficits Psych: Alert, oriented, appropriate affect Assessment/plan: Acute diverticulitis with abscess and sepsis present on admission -Decrease IV fluids -Continue with Rocephin and Flagyl -ID and surgery recommendations appreciated -Add oral Hemet -Anticipate patient's diet to be increased by surgery Dyslipidemia -Resume statin Anticipate home in a.m. Objective - Vital Signs Vital signs: Vital Signs Temp 98.5 F 05/07/22 07:21 Pulse 63 05/07/22 07:21 Resp 16 05/07/22 07:21 BP 128/79 05/07/22 07:21 Pulse Ox 95 05/07/22 08:44 FiO2 Intake & Output 05/06/22 05/07/22 05/07/22 18:59 06:59 18:59 Intake Total 1070 Balance 1070 Weight 85.275 kg Intake: Oral 1070 Other: # Voids 4 3 - Labs CBC & Chem 7: 05/07/22 05:53 07/18/22 05:53 Labs: Abnormal Lab Results - Last 24 Hours (Table) 05/04/22 05/07/22 05/07/22 Range/Units 16:35 05:53 05:53 Hgb 11.4 L (12.0-15.0) g/dL Hct 36.3 L (37.2-46.3) % MCHC 31.4 L (32.0-37.0) g/dL Immature Gran # 0.10 H (0.00-0.04) X 10*3/uL BUN 3.9 L (9.0-27.0) mg/dL BUN/Creatinine Ratio 6.11 L (12.00-20.00) Ratio Total Bilirubin 0.20 L (0.30-1.20) mg/dL Total Protein 5.4 L (6.2-8.2) g/dL Albumin 3.0 L (3.8-4.9) g/dL Albumin/Globulin Ratio 1.25 L (1.60-3.17) g/dL Mycoplasma pneumon IgG 2.01 H (<=0.90) INDEX Microbiology - Last 24 Hours (Table) 05/04/22 20:00 Blood Culture - Preliminary Blood No Growth after 48 hours 05/04/22 19:45 Blood Culture - Preliminary Blood No Growth after 48 hours
[2022-05-07] MEDS ORDERED: HYDROcodone/APAP 5-325MG 1 EACH TAB PO PRN (17:25)
[2022-05-08] MEDS: KETOROLAC 15 MG/ML 1 ML VIAL IVP SCH ×2 (00:45→06:14)
[2022-05-08] MEDS: HEPARIN SODIUM,PORCINE/PF 5,000 UNIT/0.5 ML SYRINGE SQ SCH ×2 (00:45→08:46)
[2022-05-08] MEDS: metroNIDAZOLE-NS PMX 500 MG in SALINE 1 100ML.BAG IVPB SCH ×2 (00:46→06:14)
[2022-05-08] MEDS: SODIUM CHLORIDE 0.9% 1,000 ML IV SCH (06:14)
[2022-05-08 06:45] LABS: Basophils % (A) 1 %; Eosinophils # (A) 0.1 k/uL (0-0.7); Eosinophils % (A) 1 %; HCT 38.3 % (34.0-46.0); HGB 12.2 gm/dL (11.4-16.0); Hypochromasia Slight; Lymphocytes # (A) 1.8 k/uL (1.0-4.8); Lymphocytes % (A) 21 %; MCH 28.3 pg (25.0-35.0); MCHC 31.8 g/dL (31.0-37.0); MCV 88.9 fL (80.0-100.0); Mean Platelet Volume 7.3; Monocytes # (A) 0.6 k/uL (0-1.0); Monocytes % (A) 7 %; Neutrophils % (A) 69 %; Platelet Count 333 k/uL (150-450); RBC 4.31 m/uL (3.80-5.40); RDW 13.7 % (11.5-15.5); WBC 8.6 k/uL (3.8-10.6)
[2022-05-08 07:04] LABS: ALT 14 U/L (4-34); AST 23 U/L (14-36); African American GFR (CKD) >90 (>60 ml/min/1.73 sqM); Albumin 2.9 g/dL (3.5-5.0); Albumin/Globulin Ratio 1.1; Alkaline Phosphatase 74 U/L (38-126); Anion Gap 5 mmol/L; Blood Urea Nitrogen 4 mg/dL (7-17); Calcium 8.5 mg/dL (8.4-10.2); Carbon Dioxide 25 mmol/L (22-30); Chloride 109 mmol/L (98-107); Globulin 2.7 g/dL; Glucose 92 mg/dL (74-99); Non-African American GFR(CKD) >90 (>60 ml/min/1.73 sqM); Potassium 3.9 mmol/L (3.5-5.1); Sodium 139 mmol/L (137-145); Total Bilirubin 0.3 mg/dL (0.2-1.3); Total Protein 5.6 g/dL (6.3-8.2)
[2022-05-08 07:42] VITALS: BP 128/78; PULSE 61; RESP 16; TEMP 97.9
--- NOTE | 2022-05-08 08:36 | P.PN ---
Subjective Progress Note Date: 05/07/22 Principal diagnosis: Acute diverticulitis with intra-mural abscess Patient is a 66 year old female presenting to the hospital with abdominal pain and has been diagnosed with acute diverticulitis and concern for intramural abscess, patient with penicillin ALLERGY. On today's evaluation that is 05/07/2022, the patient denies having any fever or any chills, the patient is breathing comfortably, the patient lower abdominal pain has decreased in intensity no nausea no vomiting no diarrhea Objective - Vital Signs Vital signs: Vital Signs Temp 98.5 F 05/07/22 07:21 Pulse 63 05/07/22 07:21 Resp 16 05/07/22 07:21 BP 128/79 05/07/22 07:21 Pulse Ox 95 05/07/22 08:44 FiO2 Intake & Output 05/06/22 05/07/22 05/07/22 18:59 06:59 18:59 Intake Total 1070 Balance 1070 Intake: Oral 1070 Other: # Voids 4 3 - Exam GENERAL DESCRIPTION: An elderly female lying in bed in no distress RESPIRATORY SYSTEM: Unlabored breathing , decreased breath sounds at bases HEART: S1 S2 regular rate and rhythm , ABDOMEN: Soft , no tenderness EXTREMITIES: No edema feet - Labs CBC & Chem 7: 05/08/22 06:23 05/08/22 06:23 Labs: Abnormal Lab Results - Last 24 Hours (Table) 05/04/22 05/06/22 05/07/22 Range/Units 16:35 05:33 05:53 WBC 11.32 H (4.50-10.00) X 10*3/uL RBC 4.03 L (4.10-5.20) X 10*6/uL Hgb 11.2 L 11.4 L (12.0-15.0) g/dL Hct 35.6 L 36.3 L (37.2-46.3) % MCHC 31.5 L 31.4 L (32.0-37.0) g/dL Immature Gran # 0.11 H 0.10 H (0.00-0.04) X 10*3/uL Neutrophils # 8.15 H (1.80-7.70) X 10*3/uL BUN (9.0-27.0) mg/dL BUN/Creatinine Ratio (12.00-20.00) Ratio Total Bilirubin (0.30-1.20) mg/dL Total Protein (6.2-8.2) g/dL Albumin (3.8-4.9) g/dL Albumin/Globulin Ratio (1.60-3.17) g/dL Mycoplasma pneumon IgG 2.01 H (<=0.90) INDEX 05/07/22 Range/Units 05:53 WBC (4.50-10.00) X 10*3/uL RBC (4.10-5.20) X 10*6/uL Hgb (12.0-15.0) g/dL Hct (37.2-46.3) % MCHC (32.0-37.0) g/dL Immature Gran # (0.00-0.04) X 10*3/uL Neutrophils # (1.80-7.70) X 10*3/uL BUN 3.9 L (9.0-27.0) mg/dL BUN/Creatinine Ratio 6.11 L (12.00-20.00) Ratio Total Bilirubin 0.20 L (0.30-1.20) mg/dL Total Protein 5.4 L (6.2-8.2) g/dL Albumin 3.0 L (3.8-4.9) g/dL Albumin/Globulin Ratio 1.25 L (1.60-3.17) g/dL Mycoplasma pneumon IgG (<=0.90) INDEX Microbiology - Last 24 Hours (Table) 05/04/22 20:00 Blood Culture - Preliminary Blood No Growth after 48 hours 05/04/22 19:45 Blood Culture - Preliminary Blood No Growth after 48 hours Assessment and Plan (1) Abscess of sigmoid colon due to diverticulitis Current Visit: Yes Status: Acute Code(s): K57.20 - DVTRCLI OF LG INT W PERFORATION AND ABSCESS W/O BLEEDING SNOMED Code(s): 4444229487074424 Plan: 1patient presented hospital with abdominal pain nausea vomiting did have elevated white count has been diagnosed with acute sigmoid diverticulitis with no evidence of any perforation or extramural abscess there was a question of possible intramural abscess and will need to call for the enteric gram-negative both aerobes and anaerobes. 2patient to have a penicillin allergy however did mention she has taken Augmentin without any problem and used to get before Before Her Dental Procedure and Seem to Have Been Doing Okay with That Clinical doubt true Penicillin Allergy. Information needed to be confirmed with the pharmacy 3 patient to continue with Rocephin 2 g daily and Flagyl and monitor clinical course closely Time with Patient: Less than 30
[2022-05-08] MEDS ORDERED: ATORVASTATIN 10 MG TAB PO SCH (09:00)
--- NOTE | 2022-05-08 12:46 | P.PN ---
Subjective Progress Note Date: 05/08/22 CHIEF COMPLAINT: Diverticulitis HISTORY OF PRESENT ILLNESS: Patient denies any abdominal pain. She tolerated a low fiber diet for breakfast. She did report a little nausea this morning after they started antibiotic. This has improved. She is having flatus. Afebrile. White count remains normal at 8.6. Patient being discharged this afternoon. PHYSICAL EXAM: VITAL SIGNS: Reviewed GENERAL: Well-developed in no acute distress. HEENT: No sclera icterus. Extraocular movements grossly intact. Moist buccal mucosa. Head is atraumatic, normocephalic. Hears conversational speech. No nasal draina ge. NECK: Supple without lymphadenopathy. CHEST: Non-labored respirations and equal bilateral excursions. CARDIOVASCULAR: Palpable 2+ radial pulses. ABDOMEN: Soft. Nondistended. Nontender. MUSCULOSKELETAL: No clubbing or cyanosis. NEUROLOGIC: No focal or lateralizing signs. Cranial nerves II through XII grossly intact. PSYCH: Appropriate affect. Alert and oriented to person, place and time. SKIN: Well perfused. Good skin turgor. ASSESSMENT: 1. Sigmoid diverticulitis with abscess PLAN: -Patient can be discharged from surgical standpoint -Continue a low fiber diet -Discharge Antibiotics per infectious disease Physician [employer] note has been reviewed by physician. Signing provider agrees with the documented findings, assessment, and plan of care. Objective - Vital Signs Vital signs: Vital Signs Temp 97.9 F 05/08/22 07:40 Pulse 61 05/08/22 07:40 Resp 16 05/08/22 07:40 BP 128/78 05/08/22 07:40 Pulse Ox 95 05/08/22 07:40 FiO2 Intake & Output 05/07/22 05/08/22 05/08/22 18:59 06:59 18:59 Intake Total 380 480 320 Balance 380 480 320 Weight 85.275 kg Intake: Oral 380 480 320 Other: Voiding Method Toilet # Voids 2 2 - Labs CBC & Chem 7: 05/08/22 06:23 05/08/22 06:23 Labs: Abnormal Lab Results - Last 24 Hours (Table) 05/08/22 Range/Units 06:23 Chloride 109 H (98-107) mmol/L BUN 4 L (7-17) mg/dL Total Protein 5.6 L (6.3-8.2) g/dL Albumin 2.9 L (3.5-5.0) g/dL Microbiology - Last 24 Hours (Table) 05/04/22 20:00 Blood Culture - Preliminary Blood No Growth after 72 hours 05/04/22 19:45 Blood Culture - Preliminary Blood No Growth after 72 hours
--- NOTE | 2022-05-08 14:54 | P.DS ---
Providers Date of admission: 05/04/22 18:41 Expected date of discharge: 05/08/22 Attending physician: Arlet Sanchez MD Consults: 05/04/22 18:36 Consult Physician Stat Consulting Provider: Yuliana Beckman Consult Reason/Comments: Sigmoid diverticulitis with abscess Do you want consulting provider notified?: Already Contacted 05/06/22 12:48 Consult Physician Routine Consulting Provider: Sangita Billings Consult Reason/Comments: Complicated diverticulitis, antibiotic management Do you want consulting provider notified?: Yes Primary care physician: Hyacinth Grant MD Hospital Course: Discharge Diagnosis: Acute diverticulitis with abscess and sepsis present on admission Dyslipidemia Hospital Course: Patient is a 66-year-old female with dyslipidemia, chronic abdominal pain, and osteoarthritis who presented with complaints of worsening abdominal pain. The ER she underwent an extensive evaluation. CT abdomen and pelvis revealed diverticulitis with abscess. Laboratory analysis showed a white blood cell count of 13.1, lactic acid 1.2, and mildly elevated transaminases. She was admitted and was started on IV fluids and antibiotics. Surgery was consulted. Infectious disease was consulted her Levaquin was discontinued and she was started on Rocephin. She continued to improve on her IV antibiotics. She was able to tolerate a low fiber diet. Pain was controlled and she was determined stable for discharge. Discharge instructions: Follow with Dr. Grant in 1-2 days, Dr. Beckman in [address] Rivas next month for work up of IBS. Cipro and flagyl X 10 days. Low fiber diet. Patient seen and examined at bedside. Vital signs reviewed and stable. General: nontoxic, no distress, appears at stated age Derm: warm, dry Head: atraumatic, normocephalic, symmetric Eyes: EOMI, no lid lag, anicteric sclera Mouth: no lip lesion, mucus membranes moist Cardiovascular: S1S2 reg, no murmur, positive posterior tibial pulse bilateral, Lungs: CTA bilateral, no rhonchi, no rales , no accessory muscle use Abdominal: soft, nontender to palpation, no guarding, no appreciable organomegaly Ext: no gross muscle atrophy, no edema, no contractures Neuro: CN II-XI grossly intact, no focal neuro deficits Psych: Alert, oriented, appropriate affect A total of 32 minutes of time were spent preparing this complex discharge summary. Patient was discharged on 05/08/22. Patient Condition at Discharge: Stable Plan - Discharge Summary Discharge Rx Participant: Yes New Discharge Prescriptions: New metroNIDAZOLE [Flagyl] 500 mg PO TID #30 tab Ciprofloxacin HCl [Cipro] 500 mg PO BID 10 Days #20 tab Continue Atorvastatin [Lipitor] 10 mg PO DAILY Discharge Medication List Atorvastatin [Lipitor] 10 mg PO DAILY 09/02/20 [History] Ciprofloxacin HCl [Cipro] 500 mg PO BID 10 Days #20 tab 05/08/22 [Rx] metroNIDAZOLE [Flagyl] 500 mg PO TID #30 tab 05/08/22 [Rx] Follow up Appointment(s)/Referral(s): Hyacinth Grant MD [Primary Care Provider] - 05/15/22 11:45 am Yuliana Beckman MD [STAFF PHYSICIAN] - 05/22/22 Elvie Rivas MD [STAFF PHYSICIAN] - 06/12/22 3:00 pm ( ) Patient Instructions/Handouts: Diverticulitis (DC), Low Fiber Diet (DC), Diverticulitis Diet (DC) Activity/Diet/Wound Care/Special Instructions: Activity: as tolerated Diet: Low Fiber Discharge Disposition: HOME SELF-CARE
== END 2022-05-08 13:38 | disposition home or self-care (01) | DRG 872 ==
LOC: EC 13:37 → 4SSUR 18:41
PROVIDERS: ADMIT Internal Medicine; ATTEND Internal Medicine
DX: A41.9 Sepsis, unspecified organism (principal); K57.20 Diverticulitis of large intestine with perforation and abscess without bleeding; Z20.822 Contact with and (suspected) exposure to COVID-19; N83.202 Unspecified ovarian cyst, left side; E78.5 Hyperlipidemia, unspecified; G89.29 Other chronic pain; J45.909 Unspecified asthma, uncomplicated; M19.90 Unspecified osteoarthritis, unspecified site; Z79.899 Other long term (current) drug therapy; Z88.0 Allergy status to penicillin; Z90.710 Acquired absence of both cervix and uterus; Z88.1 Allergy status to other antibiotic agents
CPT/HCPCS: 36415; 74022; 74177; 80048; 80053; 81003; 82150; 83605; 83690; 83735; 84145; 85025; 86738; 87040; 87502; 87635; 94760; 96361; 96365; 96366; 96375; 99285

== ENCOUNTER → 2022-05-22 | Outpatient (CLI) | payer MEDICARE | LOC: CPPFTMAIN 09:53 | PROVIDERS: ATTEND Internal Medicine | DX: R05.9 Cough, unspecified (principal); Z88.0 Allergy status to penicillin; Z88.1 Allergy status to other antibiotic agents | CPT/HCPCS: 94060; 94726; 94729 ==

== ENCOUNTER → 2022-05-24 | Outpatient (CLI) | payer MEDICARE ==
--- NOTE | 2022-05-24 14:56 | US ---
EXAMINATION TYPE: US pelvic complete DATE OF EXAM: 05/24/2022 COMPARISON: Correlation CT 05/04/2022 CLINICAL HISTORY: 67-year-old female N83.9 Lesion left ovary. TECHNIQUE: Transabdominal sonographic images of the pelvis were acquired. Transvaginal sonographic i mages were attempted, unable to obtain diagnostic images transvaginally due to large size of the cyst s. Date of LMP: Hysterectomy 20-30 years ago Patient states she has both her ovaries and both of her kidneys. FINDINGS: EXAM MEASUREMENTS: Patient had diverticulum rupture on April 27, 2022, she came to ER May 04 and was admitted to the [facility] 4 [facility]. Currently she had symptoms of fatigue, aching in her pelvis and diarrhea. Uterus: Surgically absent Right adnexa and extending to the midline demonstrates 9.2 x 5.6 x 5.6cm complex cystic mass. Lobulat ed mural soft tissue measuring up to 5.6 cm. Left adnexa shows possible left ovary measuring 7.4 x 5.7 x 5.5cm with cystic areas as well as thicke celine dictation to 9 mm and mural nodularity. No pelvic free fluid seen. IMPRESSION: Complex cystic areas within both adnexa measuring up to 9.2 cm on the right and 7.4 cm on the left. U nable to exclude underlying cystic epithelial ovarian neoplasms including cystadenocarcinomas. Consid er repeat CT to assess for changes compared to 05/04/2022.
== END | disposition home or self-care (01) ==
LOC: RADUSWWP 12:15
PROVIDERS: ATTEND Obstetrics & Gynecology
DX: N83.9 Noninflammatory disorder of ovary, fallopian tube and broad ligament, unspecified (principal)
CPT/HCPCS: 76856

== ENCOUNTER 2022-07-23 19:48 | Emergency (ER) | payer MEDICARE ==
[2022-07-23] MEDS ORDERED: SODIUM CHLORIDE 0.9% 1,000 ML IV STA (20:07)
[2022-07-23 20:18] VITALS: TEMP 98.5
[2022-07-23] MEDS ORDERED: metroNIDAZOLE-NS PMX 500 MG in SALINE 1 100ML.BAG IVPB STA (20:35)
[2022-07-23] MEDS ORDERED: PIPERACILLIN-TAZOBACTAM 3.375 GM in SODIUM CHLORIDE 0.9% 100 ML IVPB STA (20:35)
[2022-07-23] MEDS ORDERED: ONDANSETRON 4 MG/2 ML VIAL IVP STA (20:43)
[2022-07-23] MEDS ORDERED: MORPHINE SULFATE 4 MG/ML SYRINGE IV STA (20:43)
--- NOTE | 2022-07-23 20:46 | ED ---
Abdominal Pain HPI - General Chief Complaint: Abdominal Pain Stated Complaint: Infection Time Seen by Provider: 07/23/22 20:06 Source: patient, family, RN notes reviewed Mode of arrival: wheelchair Limitations: no limitations - History of Present Illness Initial Comments: This is a pleasant 67-year-old female who presents to the emergency department complaining of lower abdominal pain which is developed over the past few days. Patient recently had surgery 10 days ago for ovarian excision at [facility], [facility], in [place]. Surgeon was Dr. Putnam. Patient states she's had intense pain developing over the lower abdomen which be came more unbearable today. Patient is taking oxycodone at home for pain. Patient has had some diarrhea and nausea. Patient was seen by her physician today who sent her here to the ER for admission. No headache, POSITIVE chills, no changes in vision or hearing, no sore throat or difficulty with speech, no neck pain, no chest pain or shortness of breath, POSITIVE abdominal pain, nausea, vomiting, diarrhea no numbness or tingling, no extremity pain, no skin rashes or lesions. Past medical, surgical, social, and family history reviewed. MD Complaint: abdominal pain - Related Data Home Medications Medication Instructions Recorded Confirmed Atorvastatin [Lipitor] 10 mg PO DAILY 09/02/20 05/04/22 Previous Rx's Medication Instructions Recorded Ciprofloxacin HCl [Cipro] 500 mg PO BID 10 Days #20 tab 05/08/22 metroNIDAZOLE [Flagyl] 500 mg PO TID #30 tab 05/08/22 Allergies Allergy/AdvReac Type Severity Reaction Status Date / Time No Known Allergies Allergy Verified 07/23/22 20:14 Review of Systems ROS Statement: Those systems with pertinent positive or pertinent negative responses have been documented in the HPI. ROS Other: All systems not noted in ROS Statement are negative. Past Medical History Past Medical History: GERD/Reflux, Hyperlipidemia, Osteoarthritis (OA) Additional Past Medical History / Comment(s): Cataracts. Patient states she has planned surgery for cataract removal in the next few weeks. seasonal allergies, covid 05/2022 History of Any Multi-Drug Resistant Organisms: None Reported Past Surgical History: Hysterectomy, Joint Replacement Additional Past Surgical History / Comment(s): rt foot bunionectomy, ovaries Past Anesthesia/Blood Transfusion Reactions: Previous Problems w/ Anesthesia, Motion Sickness Additional Past Anesthesia/Blood Transfusion Reaction / Comment(s): hard time waking up Past Psychological History: No Psychological Hx Reported Smoking Status: Never smoker Past Alcohol Use History: None Reported Past Drug Use History: None Reported - Past Family History Father Family Medical History: Deep Vein Thrombosis (DVT) Son(s) Family Medical History: Cancer General Exam Limitations: no limitations General appearance: alert, in no apparent distress, in distress Head exam: Present: atraumatic, normocephalic, normal inspection Eye exam: Present: normal appearance, PERRL, EOMI. Absent: scleral icterus, conjunctival injection, periorbital swelling ENT exam: Present: normal exam, mucous membranes moist Neck exam: Present: normal inspection, full ROM. Absent: tenderness, meningismus, lymphadenopathy Respiratory exam: Present: normal lung sounds bilaterally. Absent: respiratory distress, wheezes, rales, rhonchi, stridor, chest wall tenderness, accessory muscle use, decreased breath sounds, prolonged expiratory Cardiovascular Exam: Present: normal rhythm, tachycardia, normal heart sounds. Absent: systolic murmur, diastolic murmur, rubs, gallop, clicks GI/Abdominal exam: Present: tenderness (Exquisite tenderness across the lower abdomen. Guarding, percussion tenderness, no crepitus ascertained. No overlying erythema), guarding, rebound, normal bowel sounds, other (Patient has multiple laparoscopic surgical incisions which appear to be healing adequately. Very tender lower abdomen, positive percussion tenderness.). Absent: distended, bruit, pulsatile mass Extremities exam: Present: normal inspection, full ROM, normal capillary refill. Absent: tenderness, pedal edema, joint swelling, calf tenderness Back exam: Present: normal inspection Neurological exam: Present: alert, oriented X3, CN II-XII intact Psychiatric exam: Present: normal affect, normal mood Skin exam: Present: warm, dry, intact, normal color. Absent: rash Course Vital Signs 07/23/22 07/23/22 07/23/22 20:14 20:50 22:14 Temperature 98.5 F Pulse Rate 129 H 118 H 110 H Respiratory 22 20 22 Rate Blood Pressure 137/82 146/90 120/85 O2 Sat by Pulse 95 96 98 Oximetry 07/23/22 22:38 Temperature Pulse Rate 116 H Respiratory 22 Rate Blood Pressure 133/69 O2 Sat by Pulse 96 Oximetry - Reevaluation(s) Reevaluation #1: 07/23/22 23:07 Patient reevaluated and is somewhat improved. Normalizing. Reevaluation #2: 07/23/22 23:15 Patient reevaluated, capillary refill less than 2 seconds. Peripheral pulses are 2+ out of 4. No evidence of mottling. Adequate perfusion. Patient still tachycardic. Blood pressure is normal. - Consultations Consultation #1: Case discussed with the patient's hospitalist physician, Dr. Ayala. He wants me to discuss the case with gynecology here. Call placed. Consultation #2: Case discussed with on-call gynecology, Dr. Morgan who states the patient needs to be transferred back to the surgical facility. All findings discussed, case discussed in detail Consultation #3: Case discussed with the gynecological oncology team at [facility], discussed with the resident, Dr. Love. Accepting transfer physician is Dr. Alireza Putnam. Procedures - Sepsis Sepsis Focused Exam #1 Time Sepsis Criteria Met: 21:56 Sepsis Focused Exam Date: 07/23/22 Sepsis Focused Exam Time: 21:56 Sepsis Focused Exam Complete: Yes Vital Signs & RN Notes Reviewed: Yes Capillary Refill: < 2 Seconds: Fingers, Toes Peripheral Pulses: Normal: Radial (R), Radial (L), Posterior Tibialis (R), Posterior Tibialis (L), Dorsalis Pedis (R), Dorsalis Pedis (L) Skin Color: Normal for Patient Respiratory Exam: normal lung sounds Cardiovascular Exam: tachycardia Medical Decision Making - Medical Decision Making Given the patient's presentation, postsurgical infectious process is concerning. Computed tomography scan was ordered initially. The patient's tachycardia and appearance I ordered Zosyn and metronidazole. Blood cultures, lactic acid, troponin, other general laboratory investigations. Surgery was done at [facility] by Dr. Putnam. Patient given Zosyn 3.375 g IV piggyback, metronidazole 500 mg IV piggyback, vancomycin 1500 mg IV piggyback. - Lab Data Result diagrams: 07/23/22 20:49 07/23/22 20:49 Lab Results 07/23/22 07/23/22 07/23/22 Range/Units 20:49 20:49 20:49 WBC 25.7 H (3.8-10.6) k/uL RBC 3.30 L (3.80-5.40) m/uL Hgb 9.3 L (11.4-16.0) gm/dL Hct 29.3 L (34.0-46.0) % MCV 88.6 (80.0-100.0) fL MCH 28.0 (25.0-35.0) pg MCHC 31.6 (31.0-37.0) g/dL RDW 16.2 H (11.5-15.5) % Plt Count 541 H (150-450) k/uL MPV 7.5 Neutrophils % 87 % Lymphocytes % 6 % Monocytes % 5 % Eosinophils % 0 % Basophils % 0 % Neutrophils # 22.3 H (1.3-7.7) k/uL Lymphocytes # 1.5 (1.0-4.8) k/uL Monocytes # 1.4 H (0-1.0) k/uL Eosinophils # 0.0 (0-0.7) k/uL Basophils # 0.1 (0-0.2) k/uL Hypochromasia Slight Anisocytosis Slight PT (9.0-12.0) sec INR (<1.2) Sodium 134 L (137-145) mmol/L Potassium 4.3 (3.5-5.1) mmol/L Chloride 97 L (98-107) mmol/L Carbon Dioxide 24 (22-30) mmol/L Anion Gap 13 mmol/L BUN 17 (7-17) mg/dL Creatinine 0.66 (0.52-1.04) mg/dL Est GFR (CKD-EPI)AfAm >90 (>60 ml/min/1.73 sqM) Est GFR (CKD-EPI)NonAf >90 (>60 ml/min/1.73 sqM) Glucose 128 H (74-99) mg/dL Plasma Lactic Acid Patrice (0.7-2.0) mmol/L Calcium 9.1 (8.4-10.2) mg/dL Total Bilirubin 2.1 H (0.2-1.3) mg/dL AST 41 H (14-36) U/L ALT 24 (4-34) U/L Alkaline Phosphatase 135 H (38-126) U/L Troponin I (0.000-0.034) ng/mL C-Reactive Protein (<1.0) mg/dL Total Protein 5.9 L (6.3-8.2) g/dL Albumin 2.8 L (3.5-5.0) g/dL Lipase 40 (23-300) U/L Urine Color [place] Urine Appearance Cloudy H (Clear) Urine pH 6.0 (5.0-8.0) Ur Specific [place] 1.027 (1.001-1.035) Urine Protein 1+ H (Negative) Urine Glucose (UA) Negative (Negative) Urine Ketones Negative (Negative) Urine Blood Negative (Negative) Urine Nitrite Negative (Negative) Urine Bilirubin 1+ H (Negative) Urine Urobilinogen 8.0 (<2.0) mg/dL Ur Leukocyte Esterase Negative (Negative) Urine RBC 2 (0-5) /hpf Urine WBC 8 H (0-5) /hpf Ur Squamous Epith Cells 3 (0-4) /hpf Amorphous Sediment Occasional H (None) /hpf Urine Bacteria Rare H (None) /hpf Urine Mucus Many H (None) /hpf 07/23/22 07/23/22 07/23/22 Range/Units 20:49 20:49 21:49 WBC (3.8-10.6) k/uL RBC (3.80-5.40) m/uL Hgb (11.4-16.0) gm/dL Hct (34.0-46.0) % MCV (80.0-100.0) fL MCH (25.0-35.0) pg MCHC (31.0-37.0) g/dL RDW (11.5-15.5) % Plt Count (150-450) k/uL MPV Neutrophils % % Lymphocytes % % Monocytes % % Eosinophils % % Basophils % % Neutrophils # (1.3-7.7) k/uL Lymphocytes # (1.0-4.8) k/uL Monocytes # (0-1.0) k/uL Eosinophils # (0-0.7) k/uL Basophils # (0-0.2) k/uL Hypochromasia Anisocytosis PT 12.3 H (9.0-12.0) sec INR 1.2 H (<1.2) Sodium (137-145) mmol/L Potassium (3.5-5.1) mmol/L Chloride (98-107) mmol/L Carbon Dioxide (22-30) mmol/L Anion Gap mmol/L BUN (7-17) mg/dL Creatinine (0.52-1.04) mg/dL Est GFR (CKD-EPI)AfAm (>60 ml/min/1.73 sqM) Est GFR (CKD-EPI)NonAf (>60 ml/min/1.73 sqM) Glucose (74-99) mg/dL Plasma Lactic Acid Patrice 1.0 (0.7-2.0) mmol/L Calcium (8.4-10.2) mg/dL Total Bilirubin (0.2-1.3) mg/dL AST (14-36) U/L ALT (4-34) U/L Alkaline Phosphatase (38-126) U/L Troponin I <0.012 (0.000-0.034) ng/mL C-Reactive Protein (<1.0) mg/dL Total Protein (6.3-8.2) g/dL Albumin (3.5-5.0) g/dL Lipase (23-300) U/L Urine Color Urine Appearance (Clear) Urine pH (5.0-8.0) Ur Specific [place] (1.001-1.035) Urine Protein (Negative) Urine Glucose (UA) (Negative) Urine Ketones (Negative) Urine Blood (Negative) Urine Nitrite (Negative) Urine Bilirubin (Negative) Urine Urobilinogen (<2.0) mg/dL Ur Leukocyte Esterase (Negative) Urine RBC (0-5) /hpf Urine WBC (0-5) /hpf Ur Squamous Epith Cells (0-4) /hpf Amorphous Sediment (None) /hpf Urine Bacteria (None) /hpf Urine Mucus (None) /hpf 07/23/22 Range/Units 22:37 WBC (3.8-10.6) k/uL RBC (3.80-5.40) m/uL Hgb (11.4-16.0) gm/dL Hct (34.0-46.0) % MCV (80.0-100.0) fL MCH (25.0-35.0) pg MCHC (31.0-37.0) g/dL RDW (11.5-15.5) % Plt Count (150-450) k/uL MPV Neutrophils % % Lymphocytes % % Monocytes % % Eosinophils % % Basophils % % Neutrophils # (1.3-7.7) k/uL Lymphocytes # (1.0-4.8) k/uL Monocytes # (0-1.0) k/uL Eosinophils # (0-0.7) k/uL Basophils # (0-0.2) k/uL Hypochromasia Anisocytosis PT (9.0-12.0) sec INR (<1.2) Sodium (137-145) mmol/L Potassium (3.5-5.1) mmol/L Chloride (98-107) mmol/L Carbon Dioxide (22-30) mmol/L Anion Gap mmol/L BUN (7-17) mg/dL Creatinine (0.52-1.04) mg/dL Est GFR (CKD-EPI)AfAm (>60 ml/min/1.73 sqM) Est GFR (CKD-EPI)NonAf (>60 ml/min/1.73 sqM) Glucose (74-99) mg/dL Plasma Lactic Acid Patrice (0.7-2.0) mmol/L Calcium (8.4-10.2) mg/dL Total Bilirubin (0.2-1.3) mg/dL AST (14-36) U/L ALT (4-34) U/L Alkaline Phosphatase (38-126) U/L Troponin I (0.000-0.034) ng/mL C-Reactive Protein 34.8 H (<1.0) mg/dL Total Protein (6.3-8.2) g/dL Albumin (3.5-5.0) g/dL Lipase (23-300) U/L Urine Color Urine Appearance (Clear) Urine pH (5.0-8.0) Ur Specific [place] (1.001-1.035) Urine Protein (Negative) Urine Glucose (UA) (Negative) Urine Ketones (Negative) Urine Blood (Negative) Urine Nitrite (Negative) Urine Bilirubin (Negative) Urine Urobilinogen (<2.0) mg/dL Ur Leukocyte Esterase (Negative) Urine RBC (0-5) /hpf Urine WBC (0-5) /hpf Ur Squamous Epith Cells (0-4) /hpf Amorphous Sediment (None) /hpf Urine Bacteria (None) /hpf Urine Mucus (None) /hpf - EKG Data EKG Comments: EKG done at 2130 reveals sinus tachycardia with a rate of 116. Normal inter vals. Normal axis. No acute ST or T-wave changes. Minimal baseline artifact. Normal QRS morphology. - Radiology Data Radiology results: report reviewed, image reviewed Critical Care Time Critical Care Time: Yes Total Critical Care Time: 30 Critical Care Time: Sepsis, reevaluation of patient, ordering of interventions and diagnostic tests. Interpretation diagnostic tests. Discussion with consultants. Disposition Clinical Impression: Sepsis, Postoperative abscess, Pelvic abscess in female, Bilateral hydronephrosis Disposition: OTHER INSTITUTION NOT DEFINED Condition: Poor Is patient prescribed a controlled substance at d/c from ED?: No Time of Disposition: 22:29 - Out of Hospital Transfer - Req. Specs Out of Hospital Transfer - Requested Specifics: Other Emergency Center ([facility])
[2022-07-23] MEDS: SODIUM CHLORIDE 0.9% 2,000 ML IV ONE ×2 (20:59→21:08)
[2022-07-23 21:16] LABS: Anisocytosis Slight; Basophils # (A) 0.1 k/uL (0-0.2); Basophils % (A) 0 %; Eosinophils % (A) 0 %; HCT 29.3 % (34.0-46.0); HGB 9.3 gm/dL (11.4-16.0); Hypochromasia Slight; Lymphocytes # (A) 1.5 k/uL (1.0-4.8); Lymphocytes % (A) 6 %; MCHC 31.6 g/dL (31.0-37.0); MCV 88.6 fL (80.0-100.0); Mean Platelet Volume 7.5; Monocytes # (A) 1.4 k/uL (0-1.0); Monocytes % (A) 5 %; Neutrophils # (A) 22.3 k/uL (1.3-7.7); Neutrophils % (A) 87 %; Platelet Count 541 k/uL (150-450); RDW 16.2 % (11.5-15.5); WBC 25.7 k/uL (3.8-10.6)
[2022-07-23 21:18] LABS: Amorphous Sediment,Urine Occasional /hpf; Appearance,Urine Cloudy (Clear); Bacteria,Urine Rare /hpf; Bilirubin,Urine 1+ (Negative); Blood,Urine Negative (Negative); Color,Urine Orange; Glucose,Urine (UA) Negative (Negative); INR 1.2 (<1.2); Ketones,Urine Negative (Negative); Leukocyte Esterase,Urine Negative (Negative); Mucus,Urine Many /hpf; Nitrite,Urine Negative (Negative); Protein,Urine 1+ (Negative); Prothrombin Time 12.3 sec (9.0-12.0); RBC,Urine 2 /hpf (0-5); Specific Gravity,Urine 1.027 (1.001-1.035); Squamous Epithelial Cell,Urine 3 /hpf (0-4); WBC,Urine 8 /hpf (0-5)
[2022-07-23] MEDS ORDERED: HYDROmorphone 1 MG/ML 1 ML SYRINGE IVP STA (21:25)
[2022-07-23 21:30] LABS: ALT 24 U/L (4-34); AST 41 U/L (14-36); African American GFR (CKD) >90 (>60 ml/min/1.73 sqM); Albumin 2.8 g/dL (3.5-5.0); Alkaline Phosphatase 135 U/L (38-126); Anion Gap 13 mmol/L; Blood Urea Nitrogen 17 mg/dL (7-17); Calcium 9.1 mg/dL (8.4-10.2); Carbon Dioxide 24 mmol/L (22-30); Chloride 97 mmol/L (98-107); Glucose 128 mg/dL (74-99); Lipase 40 U/L (23-300); Non-African American GFR(CKD) >90 (>60 ml/min/1.73 sqM); Potassium 4.3 mmol/L (3.5-5.1); Sodium 134 mmol/L (137-145); Total Bilirubin 2.1 mg/dL (0.2-1.3); Total Protein 5.9 g/dL (6.3-8.2)
[2022-07-23] MEDS ORDERED: VANCOMYCIN IV PER PHARMACY 1 EACH MISC MISCELLANE PRN (22:37)
[2022-07-23] MEDS ORDERED: VANCOMYCIN 1,500 MG in SODIUM CHLORIDE 0.9% 250 ML IVPB STA (22:43)
--- NOTE | 2022-07-23 22:47 | XR ---
EXAMINATION TYPE: XR chest 1V portable DATE OF EXAM: 07/23/2022 COMPARISON: 05/04/2022 HISTORY: Abdominal pain TECHNIQUE: Single view FINDINGS: There is no heart failure. There is small linear density right lung base. There are no lauren r masses. Heart size is normal. No pleural effusion. IMPRESSION: Subsegmental atelectasis at the right lung base appears new compared to old exam. Normal heart.
--- NOTE | 2022-07-23 23:08 | CT ---
EXAMINATION TYPE: CT abdomen pelvis w con DATE OF EXAM: 07/23/2022 COMPARISON: 05/04/2022 HISTORY: abd pain CT DLP: 1130.6 mGycm Automated exposure control for dose reduction was used. CONTRAST: Performed with IV Contrast, patient injected with 100 mL of Isovue 300. Images obtained from the diaphragm to the floor the pelvis with the IV contrast. The lung bases are clear of consolidation. There is mild subsegmental atelectasis at the lung bases. No pleural effusion. Heart size is normal. No pericardial effusion. Liver spleen and stomach pancreas and gallbladder appear intact. Bilateral nondilated. There is no adrenal mass. Kidneys have normal size. There is bilateral hydronephrosis. There is bilat eral hydroureter. No retroperitoneal adenopathy. There is a large complex mass in the pelvis on the right side that contains fluid level. This measure s 18 cm in length and 13 cm in width. There is also extensive subcutaneous air over the lower anterio r abdomen. According to the history the patient had recently oophorectomy. There are sigmoid divertic tru. The complex fluid in the pelvis extends into the left and right side pelvic floor. The lumbar vertebra have normal alignment. No compression fracture. There is narrowing at L5-S1 disc. The bony pelvis is intact. There is some hypertrophic osteoarthritis and hip joints. No evidence of a pneumoperitoneum. IMPRESSION: Large complex mass in the pelvis consistent with abscess. This could be peridiverticular abscess. The old CT scan of 05/04/2022 appears to show 4 cm peridiverticular abscess of the mid sigmoid colon on t he left lateral pelvis and large abscess on today's exam is a continuation of this abnormality.. Extensive subcutaneous soft tissue air over the anterior abdomen bilaterally and consistent with lapa roscopic recent surgery. Bilateral hydronephrosis and hydroureter probably related to distal ureteral obstruction related to t he pelvic abscess. Exam was discussed with emergency room attending staff at 11:00 PM.
[2022-07-23] MEDS ORDERED: SODIUM CHLORIDE 0.9% 1,000 ML IV SCH (23:30)
[2022-07-24] MEDS ORDERED: HYDROmorphone 0.5 MG/0.5 ML SYRINGE IVP STA (01:49)
[2022-07-24 02:12] VITALS: BP 130/85; PULSE 112; RESP 18
[2022-07-24] MEDS ORDERED: VANCOMYCIN 1,500 MG in SODIUM CHLORIDE 0.9% 250 ML IVPB SCH (12:00)
== END 2022-07-24 02:12 | disposition other institution (70) ==
LOC: EC 19:48
DX: A41.9 Sepsis, unspecified organism (principal); R65.20 Severe sepsis without septic shock; K68.11 Postprocedural retroperitoneal abscess; L02.91 Cutaneous abscess, unspecified; N13.30 Unspecified hydronephrosis; K21.9 Gastro-esophageal reflux disease without esophagitis; E78.5 Hyperlipidemia, unspecified; M19.90 Unspecified osteoarthritis, unspecified site; Z79.899 Other long term (current) drug therapy
CPT/HCPCS: 36415; 93005; 80053; 85652; 83605; 83690; 84484; 85025; 85610; 86140; 81001; 87040; 71045; 74177; 99291; 96365; 96367 ×2; 96366 ×2; 96375 ×3; 96376; J2543; J3370; J2270; J2405; J1170 ×2; Q9967

== ENCOUNTER 2022-09-20 10:49 | Emergency (ER) | payer MEDICARE ==
[2022-09-20 11:31] VITALS: RESP 18; TEMP 98
[2022-09-20 12:39] LABS: Basophils % (A) 1 %; Eosinophils # (A) 0.1 k/uL (0-0.7); Eosinophils % (A) 1 %; HCT 38.9 % (34.0-46.0); Hypochromasia Slight; Lymphocytes # (A) 2.2 k/uL (1.0-4.8); Lymphocytes % (A) 24 %; MCH 28.2 pg (25.0-35.0); MCHC 32.7 g/dL (31.0-37.0); MCV 86.2 fL (80.0-100.0); Mean Platelet Volume 8.5; Monocytes # (A) 0.6 k/uL (0-1.0); Monocytes % (A) 6 %; Neutrophils # (A) 6.4 k/uL (1.3-7.7); Neutrophils % (A) 68 %; Platelet Count 273 k/uL (150-450); RBC 4.51 m/uL (3.80-5.40); RDW 15.1 % (11.5-15.5); WBC 9.4 k/uL (3.8-10.6)
[2022-09-20 12:41] LABS: ALT 17 U/L (4-34); African American GFR (CKD) >90 (>60 ml/min/1.73 sqM); Albumin 4.4 g/dL (3.5-5.0); Amylase 55 U/L (30-110); Anion Gap 9 mmol/L; Blood Urea Nitrogen 11 mg/dL (7-17); Calcium 9.7 mg/dL (8.4-10.2); Carbon Dioxide 24 mmol/L (22-30); Chloride 108 mmol/L (98-107); Glucose 92 mg/dL (74-99); Lipase 160 U/L (23-300); Non-African American GFR(CKD) >90 (>60 ml/min/1.73 sqM); Sodium 141 mmol/L (137-145); Total Bilirubin 0.7 mg/dL (0.2-1.3); Total Protein 7.6 g/dL (6.3-8.2)
[2022-09-20 12:45] LABS: HGB 12.7 gm/dL (11.4-16.0)
[2022-09-20 12:46] LABS: AST 31 U/L (14-36); Alkaline Phosphatase 92 U/L (38-126); Potassium 4.3 mmol/L (3.5-5.1)
--- NOTE | 2022-09-20 13:23 | CT ---
EXAMINATION TYPE: CT abdomen pelvis w con DATE OF EXAM: 09/20/2022 COMPARISON: 07/23/2022 HISTORY: pain CT DLP: 981.6 mGycm CONTRAST: CT scan of the abdomen and pelvis is performed without Oral Contrast and with IV Contrast, patient in jected with 100 mL of Isovue 300. FINDINGS: LUNG BASES-: No visible nodule. No infiltrate. LIVER/GB: No calcified gallstones. No space occupying hepatic lesion. Biliary tree is of normal ca liber. PANCREAS: No inflammation. No distinct mass. SPLEEN: No splenic enlargement. No lesion seen. ADRENALS: No nodule. No thickening. KIDNEYS/BLADDER: There is [id number] bilateral hydronephrosis with hydroureter. No definite obs tructing calculus. No nephrolithiasis. No distinct renal mass. Small amount of air is seen within th e urinary bladder lumen. The dome of the urinary bladder demonstrates thickening. BOWEL: Normal appendix. Normal bowel caliber. There is wall thickening of the sigmoid colon which co uld reflect residual inflammatory change or active inflammation is not excluded. GENITAL ORGANS: Previously noted large pelvic abscess is no longer visible. There is spiculated dens ity within the right hemipelvis with central increased density which may reflect postoperative change . No evidence for left ovarian or adnexal mass. Uterus appears to be surgically absent. LYMPH NODES: No greater than 1cm abdominal or pelvic lymph nodes are appreciated. AORTA: No significant abnormality. OSSEOUS STRUCTURES: No significant abnormality is seen. OTHER: No significant additional abnormality is seen. IMPRESSION: 1. No evidence for abscess at this time. Previously noted abscess is no longer evident. 2. There is wall thickening at the dome of the urinary bladder with soft tissue attenuation seen ext ending from the site of prior abscess. There is also air within the urinary bladder lumen. I cannot e xclude a fistula arising from the small or large bowel. Correlate for recent catheterization. 3. Wall thickening involving the sigmoid colon. I cannot exclude colitis although the findings could be related to prior inflammatory change. 4. Bilateral hydronephrosis progressive since prior study. No obstructing calculus visible at this ti me.
--- NOTE | 2022-09-20 15:05 | ED ---
Abdominal Pain HPI - General Chief Complaint: Abdominal Pain Stated Complaint: abd pain Time Seen by Provider: 09/20/22 14:39 Source: patient Mode of arrival: ambulatory Limitations: no limitations - History of Present Illness Initial Comments: This patient is a 67-year-old woman who presents with complaint of abdominal pain. She states that this is been going back about 3 weeks. Patient did have ovarian mass resected at a mono since to [facility]. She states that the postoperative course was complicated by what sounds like a pelvic or abdominal hematoma formation. They did have to evacuate the blood clot at, monocytes 2. She states that since that time she has been having mainly low abdominal fullness and cramping pain. She also has noted that when she urinates she passes gas mixed with the urine stream at times. She states that it sounds like a dark cracking when she urinates. She has not noted change in bowel movements other than there is probably a degree of constipation. She is having less frequent bowel movements. Patient has not noted worsening or relieving factors for the abdominal pain. She has not had fever or chills. MD Complaint: abdominal pain Onset/Timin -: week(s) Location: LLQ, RLQ, suprapubic Radiation: none Migration to: no migration Severity: moderate Quality: cramping, fullness Consistency: colicky Improves With: nothing Worsens With: nothing Associated Symptoms: other - Related Data Home Medications Medication Instructions Recorded Confirmed Atorvastatin [Lipitor] 10 mg PO DAILY 09/02/20 05/04/22 Previous Rx's Medication Instructions Recorded Ciprofloxacin HCl [Cipro] 500 mg PO BID 10 Days #20 tab 05/08/22 metroNIDAZOLE [Flagyl] 500 mg PO TID #30 tab 05/08/22 Amoxic-Pot Clav 875-125Mg 1 tab PO Q12HR 1 Days #14 tab 09/20/22 [Augmentin 875-125] Peg 3350 (236 gm/Btl) + Lytes 4,000 ml PO DIRECTED #1 each 09/20/22 [Golytely Lavage] Allergies Allergy/AdvReac Type Severity Reaction Status Date / Time No Known Allergies Allergy Verified 09/20/22 11:31 Review of Systems ROS Statement: Those systems with pertinent positive or pertinent negative responses have been documented in the HPI. ROS Other: All systems not noted in ROS Statement are negative. Constitutional: Denies: fever, chills, weakness Respiratory: Denies: cough, dyspnea Cardiovascular: Denies: chest pain, palpitations, edema, syncope Gastrointestinal: Reports: as per HPI, abdominal pain, nausea, constipation. Denies: vomiting, diarrhea, melena, hematochezia Genitourinary: Reports: as per HPI, frequency, other (Gas in her urine). Denies: dysuria, hematuria Skin: Denies: rash Neurological: Denies: headache, weakness, numbness Past Medical History Past Medical History: GERD/Reflux, Hyperlipidemia, Osteoarthritis (OA) Additional Past Medical History / Comment(s): Cataracts. Patient states she has planned surgery for cataract removal in the next few weeks. seasonal allergies, covid 05/2022 History of Any Multi-Drug Resistant Organisms: None Reported Past Surgical History: Hysterectomy, Joint Replacement Additional Past Surgical History / Comment(s): rt foot bunionectomy, ovaries Past Anesthesia/Blood Transfusion Reactions: Previous Problems w/ Anesthesia, Motion Sickness Additional Past Anesthesia/Blood Transfusion Reaction / Comment(s): hard time waking up Past Psychological History: No Psychological Hx Reported Smoking Status: Never smoker Past Alcohol Use History: None Reported Past Drug Use History: None Reported - Past Family History Father Family Medical History: Deep Vein Thrombosis (DVT) Son(s) Family Medical History: Cancer General Exam Limitations: no limitations General appearance: alert, in no apparent distress Head exam: Present: atraumatic, normocephalic Eye exam: Present: normal appearance. Absent: scleral icterus, conjunctival i njection ENT exam: Present: normal oropharynx Neck exam: Present: normal inspection Respiratory exam: Present: normal lung sounds bilaterally. Absent: respiratory distress, wheezes, rales, rhonchi, stridor Cardiovascular Exam: Present: regular rate, normal rhythm, normal heart sounds. Absent: systolic murmur, diastolic murmur, rubs, gallop GI/Abdominal exam: Present: soft, normal bowel sounds. Absent: distended, tenderness, guarding, rebound, rigid, mass, pulsatile mass, hernia Extremities exam: Present: normal inspection, normal capillary refill. Absent: pedal edema, calf tenderness Back exam: Present: normal inspection. Absent: CVA tenderness (R), CVA tenderness (L) Neurological exam: Present: alert Skin exam: Present: warm, dry, intact, normal color. Absent: rash Course Vital Signs 09/20/22 09/20/22 09/20/22 11:27 16:54 17:15 Temperature 98 F Pulse Rate 82 64 64 Respiratory 18 18 18 Rate Blood Pressure 142/85 132/87 142/81 O2 Sat by Pulse 97 98 96 Oximetry Medical Decision Making - Medical Decision Making This patient is 67-year-old woman here with abdominal pain and urinary complaints. Workup does reveal urinary tract infection as well as small amount of gas in the bladder. I discussed the findings with the patient's surgeon, Dr. Romeo Putnam [facility], who states that he is currently working is issue up and has further testing scheduled. Patient will go home with antibiotics and follow with Dr. Putnam. Discussed appropriate follow-up and return parameters. - Lab Data Result diagrams: 09/20/22 11:45 09/20/22 11:45 Lab Results 09/20/22 09/20/22 09/20/22 Range/Units 11:45 11:45 15:01 WBC 9.4 (3.8-10.6) k/uL RBC 4.51 (3.80-5.40) m/uL Hgb 12.7 D (11.4-16.0) gm/dL Hct 38.9 (34.0-46.0) % MCV 86.2 (80.0-100.0) fL MCH 28.2 (25.0-35.0) pg MCHC 32.7 (31.0-37.0) g/dL RDW 15.1 (11.5-15.5) % Plt Count 273 (150-450) k/uL MPV 8.5 Neutrophils % 68 % Lymphocytes % 24 % Monocytes % 6 % Eosinophils % 1 % Basophils % 1 % Neutrophils # 6.4 (1.3-7.7) k/uL Lymphocytes # 2.2 (1.0-4.8) k/uL Monocytes # 0.6 (0-1.0) k/uL Eosinophils # 0.1 (0-0.7) k/uL Basophils # 0.0 (0-0.2) k/uL Hypochromasia Slight Sodium 141 (137-145) mmol/L Potassium 4.3 (3.5-5.1) mmol/L Chloride 108 H (98-107) mmol/L Carbon Dioxide 24 (22-30) mmol/L Anion Gap 9 mmol/L BUN 11 (7-17) mg/dL Creatinine 0.61 (0.52-1.04) mg/dL Est GFR (CKD-EPI)AfAm >90 (>60 ml/min/1.73 sqM) Est GFR (CKD-EPI)NonAf >90 (>60 ml/min/1.73 sqM) Glucose 92 (74-99) mg/dL Calcium 9.7 (8.4-10.2) mg/dL Total Bilirubin 0.7 (0.2-1.3) mg/dL AST 31 (14-36) U/L ALT 17 (4-34) U/L Alkaline Phosphatase 92 (38-126) U/L Total Protein 7.6 (6.3-8.2) g/dL Albumin 4.4 (3.5-5.0) g/dL Amylase 55 (30-110) U/L Lipase 160 (23-300) U/L Urine Color Light Yellow Urine Appearance Turbid H (Clear) Urine pH 5.5 (5.0-8.0) Ur Specific [place] 1.036 H (1.001-1.035) Urine Protein Trace H (Negative) Urine Glucose (UA) Negative (Negative) Urine Ketones Negative (Negative) Urine Blood Small H (Negative) Urine Nitrite Negative (Negative) Urine Bilirubin Negative (Negative) Urine Urobilinogen <2.0 (<2.0) mg/dL Ur Leukocyte Esterase Large H (Negative) Urine RBC 15 H (0-5) /hpf Urine WBC >182 H (0-5) /hpf Urine WBC Clumps Moderate H (None) /hpf Ur Squamous Epith Cells 1 (0-4) /hpf Urine Bacteria Rare H (None) /hpf Urine Mucus Rare H (None) /hpf Disposition Clinical Impression: Urinary tract infection Narrative: Possible colitis versus surgical change Disposition: HOME SELF-CARE Condition: Fair Instructions (If sedation given, give patient instructions): Urinary Tract Infection in Women (ED) Prescriptions: Amoxic-Pot Clav 875-125Mg [Augmentin 875-125] 1 tab PO Q12HR 1 Days #14 tab Peg 3350 (236 gm/Btl) + Lytes [Golytely Lavage] 4,000 ml PO DIRECTED #1 each Is patient prescribed a controlled substance at d/c from ED?: No Referrals: Javy Floyd MD [Primary Care Provider] - 1-2 days
[2022-09-20 15:19] LABS: Appearance,Urine Turbid (Clear); Bacteria,Urine Rare /hpf; Bilirubin,Urine Negative (Negative); Blood,Urine Small (Negative); Color,Urine Light Yellow; Glucose,Urine (UA) Negative (Negative); Ketones,Urine Negative (Negative); Leukocyte Esterase,Urine Large (Negative); Mucus,Urine Rare /hpf; Nitrite,Urine Negative (Negative); PH, Urine 5.5 (5.0-8.0); Protein,Urine Trace (Negative); RBC,Urine 15 /hpf (0-5); Specific Gravity,Urine 1.036 (1.001-1.035); Squamous Epithelial Cell,Urine 1 /hpf (0-4); Urobilinogen,Urine <2.0 mg/dL (<2.0); WBC,Urine >182 /hpf (0-5)
[2022-09-20 16:55] VITALS: PULSE 64
[2022-09-20] MEDS ORDERED: MAGNESIUM CITRATE 296 ML BOTTLE PO ONE (17:03)
[2022-09-20 17:16] VITALS: BP 142/81
== END 2022-09-20 17:25 | disposition home or self-care (01) ==
LOC: EC 10:49
DX: N39.0 Urinary tract infection, site not specified (principal); E78.5 Hyperlipidemia, unspecified; Z79.02 Long term (current) use of antithrombotics/antiplatelets
CPT/HCPCS: 99284 ×2; 96365 ×2; 36415; 80053; 82150; 83690; 85025; 81001; 87086; 74177; J0696; Q9967

== ENCOUNTER 2022-09-27 23:13 | Emergency (ER) | payer MEDICARE ==
[2022-09-27 23:54] VITALS: TEMP 97.8
[2022-09-28] MEDS ORDERED: SODIUM CHLORIDE 0.9% 1,000 ML IV STA (04:32)
[2022-09-28] MEDS ORDERED: ONDANSETRON 4 MG/2 ML VIAL IVP STA (04:32)
[2022-09-28 04:39] VITALS: RESP 16
--- NOTE | 2022-09-28 05:16 | XR ---
EXAMINATION TYPE: XR KUB DATE OF EXAM: 09/28/2022 COMPARISON: 05/04/2022 HISTORY: Abdominal pain TECHNIQUE: 2 views upright FINDINGS: There are some large bowel fluid levels in the left and right abdomen. No sign of free air. Lung bases are clear. No pathologic calcifications over the kidneys. IMPRESSION: Large small fluid levels without significant dilation could relate to diarrhea. This is n ew compared to old exam. No free air.
[2022-09-28 05:26] LABS: Basophils % (A) 0 %; Eosinophils % (A) 0 %; HCT 37.1 % (34.0-46.0); HGB 12.3 gm/dL (11.4-16.0); Lymphocytes # (A) 1.1 k/uL (1.0-4.8); Lymphocytes % (A) 10 %; MCH 27.4 pg (25.0-35.0); Mean Platelet Volume 7.8; Monocytes # (A) 0.5 k/uL (0-1.0); Monocytes % (A) 4 %; Neutrophils # (A) 9.1 k/uL (1.3-7.7); Neutrophils % (A) 84 %; Platelet Count 317 k/uL (150-450); RBC 4.47 m/uL (3.80-5.40); RDW 14.7 % (11.5-15.5); WBC 10.8 k/uL (3.8-10.6)
[2022-09-28 05:36] LABS: ALT 13 U/L (4-34); AST 17 U/L (14-36); African American GFR (CKD) >90 (>60 ml/min/1.73 sqM); Albumin 3.8 g/dL (3.5-5.0); Alkaline Phosphatase 96 U/L (38-126); Anion Gap 8 mmol/L; Blood Urea Nitrogen 8 mg/dL (7-17); Calcium 9.3 mg/dL (8.4-10.2); Carbon Dioxide 24 mmol/L (22-30); Chloride 106 mmol/L (98-107); Glucose 138 mg/dL (74-99); Lipase 45 U/L (23-300); Non-African American GFR(CKD) >90 (>60 ml/min/1.73 sqM); Potassium 3.7 mmol/L (3.5-5.1); Sodium 138 mmol/L (137-145); Total Bilirubin 0.5 mg/dL (0.2-1.3)
--- NOTE | 2022-09-28 06:35 | CT ---
EXAMINATION TYPE: CT abdomen pelvis wo con DATE OF EXAM: 09/28/2022 HISTORY: Vomiting, obstruction CT DLP: 639.2 mGycm. Automated Exposure Control for Dose Reduction was Utilized. TECHNIQUE: CT scan of the abdomen and pelvis is performed without oral or IV contrast. COMPARISON: CT abdomen and pelvis 8 days ago and older CT. FINDINGS: Within the limitations of a non-contrast study, the following observations are made. LUNG BASES: Scattered tiny calcified nodules or benign granulomas redemonstrated. LIVER/GB: Gallbladder remains slightly more hyperdense suggesting gallbladder sludge. PANCREAS: No significant abnormality is seen. SPLEEN: No significant abnormality is seen. ADRENALS: No significant abnormality is seen. KIDNEYS: Persistent moderate to severe bilateral hydronephrosis. Nondependent air in bladder redemons trated which is mild to moderate concentric wall thickening. BOWEL: Suboptimal evaluation without enteric contrast. Small to moderate-sized hiatal hernia redemons trated. Stomach and duodenal sweep is not suspiciously dilated. Small bowel loops is not significantl y dilated. There is fluid prominent and dilated colon with air-fluid level extending from cecum to re ctum GENITAL ORGANS: Uterus surgically absent or markedly atrophic. Persistent right adnexal spiculated ar ea measuring approximately 4.1 x 1.8 cm axial image 67 with some ill-defined fluid and fat stranding throughout the pelvis. Scattered bilateral pelvic phleboliths redemonstrated inferior to this. LYMPH NODES: No greater than 1cm abdominal or pelvic lymph nodes are appreciated. OSSEOUS STRUCTURES: Moderate to severe disc space narrowing lumbosacral junction. OTHER: No significant additional abnormality is seen. IMPRESSION: 1. CT findings suggest diffuse colonic ileus with fluid prominent and dilated colon but no significan t stomach or small bowel dilatation. 2. Persistent posttreatment change of the pelvis. Scar tissue is suspected with adhesions possibly ca using mass effect or partial obstruction. Underlying bladder infection cannot be excluded. Possible b ladder fistula. Correlate clinically.
[2022-09-28 06:53] LABS: Appearance,Urine Turbid (Clear); Bacteria,Urine Moderate /hpf; Bilirubin,Urine Negative (Negative); Blood,Urine Moderate (Negative); Color,Urine Yellow; Glucose,Urine (UA) Negative (Negative); Ketones,Urine Trace (Negative); Leukocyte Esterase,Urine Large (Negative); Mucus,Urine Moderate /hpf; Nitrite,Urine Negative (Negative); PH, Urine 5.5 (5.0-8.0); Protein,Urine 1+ (Negative); RBC,Urine 78 /hpf (0-5); Specific Gravity,Urine 1.019 (1.001-1.035); Squamous Epithelial Cell,Urine <1 /hpf (0-4); Urobilinogen,Urine <2.0 mg/dL (<2.0); WBC,Urine >182 /hpf (0-5)
[2022-09-28] MEDS ORDERED: cefTRIAXone IN SWFI 1,000 MG/10 ML SYRINGE IVP STA (07:03)
[2022-09-28] MEDS ORDERED: diphenhydrAMINE 50 MG/ML 1 ML VIAL IVP STA (07:35)
[2022-09-28] MEDS ORDERED: METOCLOPRAMIDE 5 MG/ML 2 ML VIAL IVP STA (07:35)
[2022-09-28] MEDS ORDERED: ONDANSETRON 4 MG ODT STARTER PACK 2 TAB BTL PO STA (08:17)
--- NOTE | 2022-09-28 08:18 | ED ---
General Adult HPI - General Chief complaint: Nausea/Vomiting/Diarrhea Stated complaint: vomiting,reaction to meds Time Seen by Provider: 09/28/22 03:06 Source: patient Mode of arrival: ambulatory Limitations: no limitations - History of Present Illness Initial comments: 67-year-old female with past history of recently removed benign ovarian mass with subsequent pelvic abscess/hematoma who presents emergency Department with nausea and vomiting. Patient is being worked up for a colovesicular fistula. She was referred by Dr. Putnam to a urologist to is going to be performing a cystogram morning at 10:30. States that she attempted to do the prep last night. She began taking the MiraLAX and some stool softeners. States that she only got part way through her prep when she began having intense abdominal pain and vomiting. She states that she threw up for close to 9 hours before coming into the emergency department. She has been having some stools. Denies black or bloody stools. States that she was unable to clear herself completely there fore is concerned that she will not be able to have her procedure this morning. She denies any changes in her urination. No fevers. No sick contacts. No other alleviating, precipitating or modifying factors - Related Data Home Medications Medication Instructions Recorded Confirmed Atorvastatin [Lipitor] 10 mg PO DAILY 09/02/20 05/04/22 Previous Rx's Medication Instructions Recorded Ciprofloxacin HCl [Cipro] 500 mg PO BID 10 Days #20 tab 05/08/22 metroNIDAZOLE [Flagyl] 500 mg PO TID #30 tab 05/08/22 Amoxic-Pot Clav 875-125Mg 1 tab PO Q12HR 1 Days #14 tab 09/20/22 [Augmentin 875-125] Peg 3350 (236 gm/Btl) + Lytes 4,000 ml PO DIRECTED #1 each 09/20/22 [Golytely Lavage] Allergies Allergy/AdvReac Type Severity Reaction Status Date / Time No Known Allergies Allergy Verified 09/27/22 23:53 Review of Systems ROS Statement: Those systems with pertinent positive or pertinent negative responses have been documented in the HPI. ROS Other: All systems not noted in ROS Statement are negative. Past Medical History Past Medical History: GERD/Reflux, Hyperlipidemia, Osteoarthritis (OA) Additional Past Medical History / Comment(s): Cataracts. Patient states she has planned surgery for cataract removal in the next few weeks. seasonal allergies, covid 05/2022 History of Any Multi-Drug Resistant Organisms: None Reported Past Surgical History: Hysterectomy, Joint Replacement Additional Past Surgical History / Comment(s): rt foot bunionectomy, ovaries Past Anesthesia/Blood Transfusion Reactions: Previous Problems w/ Anesthesia, Motion Sickness Additional Past Anesthesia/Blood Transfusion Reaction / Comment(s): hard time waking up Past Psychological History: No Psychological Hx Reported Smoking Status: Never smoker Past Alcohol Use History: Rare Past Drug Use History: None Reported - Past Family History Father Family Medical History: Deep Vein Thrombosis (DVT) Son(s) Family Medical History: Cancer General Exam Limitations: no limitations General appearance: alert, in no apparent distress Head exam: Present: atraumatic, normocephalic, normal inspection Eye exam: Present: normal appearance, PERRL, EOMI. Absent: scleral icterus, conjunctival injection, periorbital swelling ENT exam: Present: normal exam, mucous membranes moist Neck exam: Present: normal inspection. Absent: tenderness, meningismus, lymphadenopathy Respiratory exam: Present: normal lung sounds bilaterally. Absent: respiratory distress, wheezes, rales, rhonchi, stridor Cardiovascular Exam: Present: regular rate, normal rhythm, normal heart sounds. Absent: systolic murmur, diastolic murmur, rubs, gallop, clicks GI/Abdominal exam: Present: soft, normal bowel sounds. Absent: distended, tenderness, guarding, rebound, rigid Extremities exam: Present: normal inspection, full ROM, normal capillary refill. Absent: tenderness, pedal edema, joint swelling, calf tenderness Back exam: Present: normal inspection Neurological exam: Present: alert, oriented X3, CN II-XII intact Psychiatric exam: Present: normal affect, normal mood Skin exam: Present: warm, dry, intact, normal color. Absent: rash Course Vital Signs 09/27/22 09/28/22 09/28/22 23:51 04:39 06:03 Temperature 97.8 F Pulse Rate 100 89 90 Respiratory 18 16 16 Rate Blood Pressure 139/93 137/98 150/93 O2 Sat by Pulse 97 97 97 Oximetry 09/28/22 08:24 Temperature Pulse Rate 84 Respiratory 16 Rate Blood Pressure 135/82 O2 Sat by Pulse 96 Oximetry Medical Decision Making - Medical Decision Making Upon arrival patient was placed into room 23. A thorough history and physical exam was performed. IV access was established and laboratory studies are conducted. Patient was given a liter bolus of normal saline and 4 mg of Zofran. Laboratory studies are reviewed and demonstrates an abnormal UA. She is given a dose of Rocephin. KUB is performed which inserts multiple fluid levels. As there is concern for obstruction patient is sent back for a CT which demonstr ates diffuse colonic ileus with fluid prominent and dilated colon. Discuss his results with the patient. She continues to have nausea and therefore she is given a dose of Reglan and Benadryl. I did speak with the patient's surgeon Dr. Putnam. States that the patient should proceed downtown if she feels well enough and be further evaluated at [facility] where they will complete her procedure she feels up to it. I did discuss this with the patient for which she was agreeable. Patient discharged home in stable condition - Lab Data Result diagrams: 09/28/22 04:45 09/28/22 04:45 Lab Results 09/28/22 09/28/22 09/28/22 Range/Units 04:45 04:45 06:11 WBC 10.8 H (3.8-10.6) k/uL RBC 4.47 (3.80-5.40) m/uL Hgb 12.3 (11.4-16.0) gm/dL Hct 37.1 (34.0-46.0) % MCV 83.0 (80.0-100.0) fL MCH 27.4 (25.0-35.0) pg MCHC 33.0 (31.0-37.0) g/dL RDW 14.7 (11.5-15.5) % Plt Count 317 (150-450) k/uL MPV 7.8 Neutrophils % 84 % Lymphocytes % 10 % Monocytes % 4 % Eosinophils % 0 % Basophils % 0 % Neutrophils # 9.1 H (1.3-7.7) k/uL Lymphocytes # 1.1 (1.0-4.8) k/uL Monocytes # 0.5 (0-1.0) k/uL Eosinophils # 0.0 (0-0.7) k/uL Basophils # 0.0 (0-0.2) k/uL Sodium 138 (137-145) mmol/L Potassium 3.7 (3.5-5.1) mmol/L Chloride 106 (98-107) mmol/L Carbon Dioxide 24 (22-30) mmol/L Anion Gap 8 mmol/L BUN 8 (7-17) mg/dL Creatinine 0.56 (0.52-1.04) mg/dL Est GFR (CKD-EPI)AfAm >90 (>60 ml/min/1.73 sqM) Est GFR (CKD-EPI)NonAf >90 (>60 ml/min/1.73 sqM) Glucose 138 H (74-99) mg/dL Calcium 9.3 (8.4-10.2) mg/dL Total Bilirubin 0.5 (0.2-1.3) mg/dL AST 17 (14-36) U/L ALT 13 (4-34) U/L Alkaline Phosphatase 96 (38-126) U/L Total Protein 7.0 (6.3-8.2) g/dL Albumin 3.8 (3.5-5.0) g/dL Lipase 45 (23-300) U/L Urine Color Yellow Urine Appearance Turbid H (Clear) Urine pH 5.5 (5.0-8.0) Ur Specific [place] 1.019 (1.001-1.035) Urine Protein 1+ H (Negative) Urine Glucose (UA) Negative (Negative) Urine Ketones Trace H (Negative) Urine Blood Moderate H (Negative) Urine Nitrite Negative (Negative) Urine Bilirubin Negative (Negative) Urine Urobilinogen <2.0 (<2.0) mg/dL Ur Leukocyte Esterase Large H (Negative) Urine RBC 78 H (0-5) /hpf Urine WBC >182 H (0-5) /hpf Urine WBC Clumps Many H (None) /hpf Ur Squamous Epith Cells <1 (0-4) /hpf Urine Bacteria Moderate H (None) /hpf Urine Mucus Moderate H (None) /hpf Disposition Clinical Impression: Colovesical fistula, Ileus, Nausea & vomiting Disposition: HOME SELF-CARE Condition: Stable Instructions (If sedation given, give patient instructions): Acute Nausea and Vomiting (ED) Additional Instructions: Please use the Zofran every 8 hours as needed for nausea. Proceed down to [facility] for your procedure as was directed by Dr. Putnam. Return for any new or worsening symptoms Is patient prescribed a controlled substance at d/c from ED?: No Referrals: Marlon Marinelli MD [Primary Care Provider] - 1-2 days Time of Disposition: 08:18
[2022-09-28 08:26] VITALS: BP 135/82; PULSE 84
== END 2022-09-28 08:32 | disposition home or self-care (01) ==
LOC: EC 23:13
DX: N32.1 Vesicointestinal fistula (principal); K56.7 Ileus, unspecified; R11.2 Nausea with vomiting, unspecified; K21.9 Gastro-esophageal reflux disease without esophagitis; E78.5 Hyperlipidemia, unspecified; M19.90 Unspecified osteoarthritis, unspecified site; Z79.899 Other long term (current) drug therapy
CPT/HCPCS: 36415; 80053; 83690; 85025; 81001; 87086; 87077; 87186; 74018; 74176; 99284; 96374; 96375 ×3; 96361 ×2; J1200; J2765; J2405; J0696; S0119

== ENCOUNTER → 2022-11-09 | Day surgery (SDC) | payer MEDICARE ==
[~2022-11-09] MED LIST changes: -ACETAMINOPHEN TAB 500 MG TAB PO ONE; +CEFEPIME 2 GM in SODIUM CHLORIDE 0.9% 100 ML IVPB STA; -DEXAMETHASONE SOD PHOSPHATE 10 MG/ML 1 ML VIAL IV ONE; -HYDROmorphone 1 MG/ML 1 ML SYRINGE IVP PRN; -LACTATED RINGERS 1,000 ML IV SCH; -LIDOCAINE 1% 20 ML VIAL (10MG/ML) FOR IV START INTRADERMA PRN; -MELOXICAM 7.5 MG TAB PO ONE; -MIDAZOLAM 2 MG/2 ML VIAL IV PRN; -ONDANSETRON 4 MG/2 ML VIAL IVP ONE; -ROPIVACAINE 246.25 MG, EPINEPHrine 0.5 MG, KETOROLAC 30 MG, cloNIDine HCL/PF 80 MCG, WA... MISCELLANE ONE; -SCOPOLAMINE 1.5MG/72HR PATCH TRANSDERM ONE; -TRANEXAMIC ACID 1,000 MG in SODIUM CHLORIDE 0.9% 50 ML IVPB ONE; -ceFAZolin IN SWFI 2 GM/20 ML SYRINGE IVP ONE
[2022-11-09 08:56] VITALS: BP 111/69; PULSE 65; RESP 18; TEMP 97.8
== END ==
LOC: CATHCVL 08:05
PROVIDERS: ATTEND Internal Medicine Infectious Disease
DX: N39.0 Urinary tract infection, site not specified (principal)
CPT/HCPCS: 36573; 36410; J0692; 76937

== ENCOUNTER 2025-01-27 07:54 | Emergency (ER) | payer MEDICARE ==
[2025-01-27 08:00] VITALS: TEMP 98.4
--- NOTE | 2025-01-27 08:18 | ED ---
General Adult HPI - General Chief complaint: Abdominal Pain Stated complaint: Abd pain, vomiting Time Seen by Provider: 01/27/25 08:03 Source: patient Mode of arrival: ambulatory Limitations: no limitations - History of Present Illness Initial comments: Dictation was produced using [employer] dictation software. please excuse any grammatical, word or spelling errors. Chief Complaint: 69-year-old female presents to the emergency department with abdominal pain History of Present Illness: Patient 69-year-old female she has history of bowel resection and ostomy after having complicated diverticulitis. There is no plans for reanastomosis. Patient states that the ostomy was placed initially in 2021. She had a complication of bowel obstruction in 2022. Since then she has been relatively healthy from an abdominal standpoint. Patient states that last night she started to have some cramping throughout her abdomen. There did not appear to be any output initially. She had 1 episode of vomiting accompanied with nausea. Initially around the time of her symptoms she did not have any output from her ostomy. This morning approximately 1 hour prior to arrival she noticed that there was some output. Patient takes laxatives daily to prevent future obstructions The ROS documented in this emergency department record has been reviewed and confirmed by me. Those systems with pertinent positive or negative responses have been documented in the HPI. All other systems are other negative and/or noncontributory. - Related Data Home Medications Medication Instructions Recorded Confirmed Atorvastatin [Lipitor] 10 mg PO DAILY 09/02/20 05/04/22 Previous Rx's Medication Instructions Recorded Ciprofloxacin HCl [Cipro] 500 mg PO BID 10 Days #20 tab 05/08/22 metroNIDAZOLE [Flagyl] 500 mg PO TID #30 tab 05/08/22 Amoxic-Pot Clav 875-125Mg 1 tab PO Q12HR 1 Days #14 tab 09/20/22 [Augmentin 875-125] Peg 3350 (236 gm/Btl) + Lytes 4,000 ml PO DIRECTED #1 each 09/20/22 [Golytely Lavage] Allergies Allergy/AdvReac Type Severity Reaction Status Date / Time No Known Allergies Allergy Verified 01/27/25 08:00 Review of Systems ROS Statement: Those systems with pertinent positive or pertinent negative responses have been documented in the HPI. ROS Other: All systems not noted in ROS Statement are negative. Past Medical History Past Medical History: GERD/Reflux, Hyperlipidemia, Osteoarthritis (OA) Additional Past Medical History / Comment(s): Cataracts. Patient states she has planned surgery for cataract removal in the next few weeks. seasonal allergies, covid 05/2022 History of Any Multi-Drug Resistant Organisms: None Reported Past Surgical History: Bowel Resection, Hysterectomy, Joint Replacement Additional Past Surgical History / Comment(s): rt foot bunionectomy, ovaries Past Anesthesia/Blood Transfusion Reactions: Previous Problems w/ Anesthesia, Motion Sickness Additional Past Anesthesia/Blood Transfusion Reaction / Comment(s): hard time waking up Past Psychological History: No Psychological Hx Reported Smoking Status: Never smoker Past Alcohol Use History: Occasional Past Drug Use History: None Reported - Past Family History Father Family Medical History: Deep Vein Thrombosis (DVT) Son(s) Family Medical History: Cancer General Exam - General Exam Comments Initial Comments: PHYSICAL EXAM: General Impression: Alert and oriented x3, not in acute distress HEENT: Normocephalic atraumatic, extra-ocular movements intact, pupils equal and reactive to light bilaterally, mucous membranes moist. Cardiovascular: Heart regular rate and rhythm Chest: Able to complete full sentences, no retractions, no tachypnea Abdomen: abdomen soft, non-tender, non-distended, no organomegaly, ostomy site clean dry intact, nonbilious nonbloody output in the ostomy bag Musculoskeletal: Pulses present and equal in all extremities, no peripheral edema Motor: no focal deficits noted Neurological: CN II-XII grossly intact, no focal motor or sensory deficits noted Skin: Intact with no visualized rashes Psych: Normal affect and mood Limitations: no limitations Course Vital Signs 01/27/25 07:55 Temperature 98.4 F Pulse Rate 108 H Respiratory 17 Rate Blood Pressure 126/86 O2 Sat by Pulse 95 Oximetry Medical Decision Making - Medical Decision Making Was pt. sent in by a medical professional or institution (, PA, ASSISTANT CASE MANAGER, urgent care, hospital, or skilled nursing...) When possible be specific @ -No Did you speak to anyone other than the patient for history (EMS, parent, family, police, friend...)? What history was obtained from this source @ -No Did you review nursing and triage notes (agree or disagree)? Why? @ -I reviewed and agree with nursing and triage notes Were old charts reviewed (outside hosp., previous admission, EMS record, old EKG, old radiological studies, urgent care reports/EKG's, skilled nursing records)? Report findings @ -No old charts were reviewed Differential Diagnosis (chest pain, altered mental status, abdominal pain women, abdominal pain men, vaginal bleeding, musculoskeletal, weakness, fever, dyspnea, syncope, headache, dizziness, GI bleed, back pain, seizure, CVA, palpatations, mental health)? @ -Differential Abdominal Pain Women: Appendicitis, Cholecystitis, diverticulosis, ischemic bowel, pancreatitis, hepatitis, UTI, gastroenteritis, AAA, incarcerated hernia, bowel obstruction, constipation, inflammatory bowel, hepatitis, peptic ulcer disease, splenic infarction, perforated viscus, vulvitis, ovarian torsion, PID, kidney stone, placenta abruption, this is not meant to be an all-inclusive list EKG interpreted by me (3pts min.). @ -None done X-rays interpreted by me (1pt min.). @ -KUB shows no acute processes CT interpreted by me (1pt min.). @ -None done U/S interpreted by me (1pt. min.). @ -None done What testing was considered but not performed or refused? (CT, X-rays, U/S, labs)? Why? @ -None What meds were considered but not given or refused? Why? @ -None Was smoking cessation discussed for >3mins.? @ -No Were there social determinants of health that impacted care today? How? (Homelessness, low income, unemployed, alcoholism, drug addiction, transportation, low edu. Level, literacy, decrease access to med. care, longterm, rehab)? @ -No Was there de-escalation of care discussed even if they declined (Discuss DNR or withdrawal of care, Hospice)? DNR status @ -No What co-morbidities impacted this encounter? (DM, HTN, Smoking, COPD, CAD, Cancer, CVA, ARF, Chemo, Hep., AIDS, mental health diagnosis, sleep apnea, morbid obesity)? @ -History of SBO Was patient admitted / discharged? Hospital course, mention meds given and route, prescriptions, significant lab abnormalities, going to OR and other pertinent info. @ -69-year-old well-appearing female presents emergency department with abdominal pain she has history of SBO due to complications of ostomy. Vital signs stable. Patient abdomen soft. She does have benign appearing output from her ostomy. Labs unremarkable. Imaging studies are negative. Patient tolerating oral intake at the bedside. Patient discharged vies follow-up with primary care doctor. Did you discuss the management of the patient with other professionals (professionals i.e. , PA, ASSISTANT CASE MANAGER, lab, RT, psych nurse, case management social worker, pipefitter welder, teacher, chairman & chief executive officer, assistant case manager)? Give summary @ -No Was critical care preformed (if so, how long)? @ -No Undiagnosed new problem with uncertain prognosis? @ -No Drug Therapy requiring intensive monitoring for toxicity (Heparin, Nitro, Insulin, Cardizem)? @ -No Were any procedures done? @ -No Diagnosis/symptom? Acute, or Chronic, or Acute on Chronic? Uncomplicated (without systemic symptoms) or Complicated (systemic symptoms)? @ -Abdominal pain, no high risk features Side effects of treatment? @ -No Exacerbation, Progression, or Severe Exacerbation? @ -No Poses a threat to life or bodily function? How? (Chest pain, USA, NE, pneumonia, PE, COPD, DKA, ARF, appy, cholecystitis, CVA, Diverticulitis, Homicidal, Suicidal, threat to staff... and all critical care pts) @ -No - Lab Data Result diagrams: 01/27/25 08:23 01/27/25 08:23 Lab Results 01/27/25 01/27/25 Range/Units 08:23 08:23 WBC 14.11 H (4.50-10.00) 10*3/uL RBC 4.98 (4.10-5.20) 10*6/uL Hgb 15.4 H (12.0-15.0) g/dL Hct 45.1 (37.2-46.3) % MCV 90.6 (80.0-97.0) fL MCH 30.9 (27.0-32.0) pg MCHC 34.1 (32.0-37.0) g/dL Plt Count 286 (140-440) 10*3/uL MPV 10.3 (9.5-12.2) fL Immature Gran % (Auto) 0.6 % Neutrophils % 85.7 % Lymphocytes % 8.3 % Monocytes % 5.1 % Eosinophils % 0.0 % Basophils % 0.3 % Immature Gran # 0.09 H (0.00-0.04) 10*3/uL Neutrophils # 12.09 H (1.80-7.70) 10*3/uL Lymphocytes # 1.17 (0.90-5.00) 10*3/uL Monocytes # 0.72 (0.20-1.00) 10*3/uL Eosinophils # 0.00 L (0.04-0.35) 10*3/uL Basophils # 0.04 (0.00-0.10) 10*3/uL Sodium 137 (137-145) mmol/L Potassium 4.8 (3.5-5.1) mmol/L Chloride 102 (98-107) mmol/L Carbon Dioxide 23 (22-30) mmol/L Anion Gap 12 mmol/L BUN 16 (7-17) mg/dL Creatinine 0.67 (0.52-1.04) mg/dL Est GFR (CKD-EPI)AfAm >90 (>60 ml/min/1.73 sqM) Est GFR (CKD-EPI)NonAf 90 (>60 ml/min/1.73 sqM) Glucose 193 H (74-99) mg/dL Calcium 10.4 H (8.4-10.2) mg/dL Total Bilirubin 1.1 (0.2-1.3) mg/dL AST 33 (14-36) U/L ALT 29 (4-34) U/L Alkaline Phosphatase 88 (38-126) U/L Total Protein 7.7 (6.3-8.2) g/dL Albumin 4.6 (3.5-5.0) g/dL Lipase 111 (23-300) U/L Disposition Clinical Impression: Abdominal pain Disposition: HOME SELF-CARE Condition: Good Instructions (If sedation given, give patient instructions): Abdominal Pain (ED) Is patient prescribed a controlled substance at d/c from ED?: No Referrals: Konrad Morel MD [Primary Care Provider] - 1-2 days Time of Disposition: 10:00
[2025-01-27 08:37] LABS: Basophils # (A) 0.04 10*3/uL (0.00-0.10); Basophils % (A) 0.3 %; HCT 45.1 % (37.2-46.3); HGB 15.4 g/dL (12.0-15.0); Lymphocytes # (A) 1.17 10*3/uL (0.90-5.00); Lymphocytes % (A) 8.3 %; MCH 30.9 pg (27.0-32.0); MCHC 34.1 g/dL (32.0-37.0); MCV 90.6 fL (80.0-97.0); Mean Platelet Volume 10.3 fL (9.5-12.2); Monocytes # (A) 0.72 10*3/uL (0.20-1.00); Monocytes % (A) 5.1 %; Neutrophils # (A) 12.09 10*3/uL (1.80-7.70); Neutrophils % (A) 85.7 %; Platelet Count 286 10*3/uL (140-440); RBC 4.98 10*6/uL (4.10-5.20); RDW 14.1 % (11.5-14.5); WBC 14.11 10*3/uL (4.50-10.00)
--- NOTE | 2025-01-27 08:47 | XR ---
EXAMINATION TYPE: XR KUB DATE OF EXAM: 01/27/2025 8:41 AM CLINICAL INDICATION: Female, 69 years old with history of abdominal pain, pain TECHNIQUE: 2 upright views of the abdomen. COMPARISON: CT abdomen and pelvis October 08, 2022. FINDINGS: Some paucity of bowel gas. Scattered gas in nondistended small and large bowel loops in the lower abdomen and pelvis. Cardiomegaly is present. No free air. No suspicious calcifications. Modera [id number] degenerative changes in both hips is redemonstrated. IMPRESSION: Overall nonspecific but favor nonobstructing bowel gas pattern. [facility], , 01/27/2025 8:45 AM
[2025-01-27 08:58] LABS: ALT 29 U/L (4-34); African American GFR (CKD) >90 (>60 ml/min/1.73 sqM); Albumin 4.6 g/dL (3.5-5.0); Anion Gap 12 mmol/L; Blood Urea Nitrogen 16 mg/dL (7-17); Calcium 10.4 mg/dL (8.4-10.2); Carbon Dioxide 23 mmol/L (22-30); Chloride 102 mmol/L (98-107); Glucose 193 mg/dL (74-99); Lipase 111 U/L (23-300); Non-African American GFR(CKD) 90 (>60 ml/min/1.73 sqM); Sodium 137 mmol/L (137-145); Total Bilirubin 1.1 mg/dL (0.2-1.3); Total Protein 7.7 g/dL (6.3-8.2)
[2025-01-27 09:11] LABS: AST 33 U/L (14-36); Alkaline Phosphatase 88 U/L (38-126); Potassium 4.8 mmol/L (3.5-5.1)
[2025-01-27 10:08] VITALS: BP 123/80; PULSE 72; RESP 16
== END 2025-01-27 10:08 | disposition home or self-care (01) ==
LOC: EC 07:54
DX: R10.9 Unspecified abdominal pain (principal); Z86.16 Personal history of COVID-19
CPT/HCPCS: 36415; 74018; 80053; 83690; 85025; 99284